=== PATIENT | male | born 1965 | race Caucasian/White ===

== ENCOUNTER 2024-10-27 05:21 | Observation (INO) ==
--- NOTE | 2024-09-23 15:52 | PAT Medication Instructions ---
Medication Instructions Date of Service September 23, 2024 Home Medications amlodipine 10 mg tablet 10 mg PO QAM cyanocobalamin (vitamin B-12) 1,000 mcg tablet (Vitamin B-12) 1,000 mcg PO DAILY diclofenac sodium 75 mg tablet,delayed release 75 mg PO QAM ergocalciferol (vitamin D2) 1,250 mcg (50,000 unit) capsule (Vitamin D2) 1,250 mcg PO WK gabapentin 300 mg capsule 300 mg PO HS PRN Pain losartan 100 mg tablet 100 mg PO QAM magnesium 250 mg tablet 250 mg PO DAILY multivitamin 1 tab PO QAM spironolactone 50 mg tablet 50 mg PO QAM ASK your surgeon for instructions diclofenac sodium 75 mg tablet,delayed release 75 mg PO QAM DO NOT take the morning of surgery cyanocobalamin (vitamin B-12) 1,000 mcg tablet (Vitamin B-12) 1,000 mcg PO DAILY ergocalciferol (vitamin D2) 1,250 mcg (50,000 unit) capsule (Vitamin D2) 1,250 mcg PO WK losartan 100 mg tablet 100 mg PO QAM magnesium 250 mg tablet 250 mg PO DAILY multivitamin 1 tab PO QAM spironolactone 50 mg tablet 50 mg PO QAM Take morning of surgery With a small sip of water, OTHERWISE NOTHING TO EAT OR DRINK AFTER MIDNIGHT: amlodipine 10 mg tablet 10 mg PO QAM Take evening before surgery gabapentin 300 mg capsule 300 mg PO HS PRN Pain (if needed) Other Notes If you have any questions please call us at [phone] or [phone] or [phone] or [phone]
--- NOTE | 2024-10-02 14:50 | Anesthesiology Consultation ---
Date of Service October 02, 2024 Assessment & Plan (1) Encounter for pre-operative examination: - check BSG am DOS. - awaitin10/06/24 [facility] cardiology clearance. Optimization form regarding rare chest discomfort to be faxed to cardiology. 10/16/24 PCP clearance, Sarah Branch. - daily alcohol intake: 6-12 beers daily. - Outpatient joint assessment: Patient is currently scheduled for inpatient pathway. If re-evaluated and patient/surgeon requests outpatient pathway, patient is not a candidate for outpatient joint program. Chart Review Chart Review: Pending: Refer to Additional Notes / Consult section and Patient seen in Pre Admission Testing Teaching & Discussion Pre-Anesthesia Teaching/Discussion Notes: Instructed NPO after midnight before surgery, except medications with 15 cc of water. Medication instructions provided according to the PAT guidelines. History Surgery Operation Date: 10/27/24 07:00 Proposed Procedures p Right Total Knee Arthroplasty - Alessandro Cruz MD Height/Weight Height: 5 ft 10 in Weight: 139.5 kg Allergies Allergy/AdvReac Type Severity Reaction Status Date / Time pseudoephedrine AdvReac Unknown elevated bp Verified 09/23/24 09:51 [From [facility]] Medications Home Medications Medication Instructions Recorded Confirmed Last Taken amlodipine 10 mg tablet 10 mg PO QAM 09/23/24 09/23/24 Unknown cyanocobalamin (vitamin B-12) 1,000 mcg PO DAILY 09/23/24 09/23/24 Unknown 1,000 mcg tablet (Vitamin B-12) diclofenac sodium 75 mg 75 mg PO QAM 09/23/24 09/23/24 Unknown tablet,delayed release ergocalciferol (vitamin D2) 1,250 1,250 mcg PO WK 09/23/24 09/23/24 Unknown mcg (50,000 unit) capsule (Vitamin D2) gabapentin 300 mg capsule 300 mg PO HS PRN Pain 09/23/24 09/23/24 Unknown losartan 100 mg tablet 100 mg PO QAM 09/23/24 09/23/24 Unknown magnesium 250 mg tablet 250 mg PO DAILY 09/23/24 09/23/24 Unknown multivitamin 1 tab PO QAM 09/23/24 09/23/24 Unknown spironolactone 50 mg tablet 50 mg PO QAM 09/23/24 09/23/24 Unknown Past Medical History Medical History Pre-diabetes "borderline" Sleep apnea bipap w/ O2 @ 2lpm HTN (hypertension) controlled, stable per pt Patient denies h/o stroke, seizures, heart attack, heart failure, blood clots/DVTs or blood transfusions. Exercise / Class Metabolic Activity II 4-5 Yardwork/Stairs/Walk up hill (intermittent shortness of breath with one flight of stairs, rare chest discomfort ongoing for several months-improved with BP medications Rx by cardiology) Past Surgical History Surgical History Hx of tonsillectomy Hx of shoulder surgery right Past Anesthesia History No Hx of Anesthesia Complications and No Family Hx of Anesthesia Complications History of PONV No Hx of PONV and No Hx of Motion Sickness Social History Smoking Status: Never smoker Do You Dip or Chew Tobacco: Yes (advised) Hx Alcohol Use: Yes (6-12 beers daily) Alcohol type: beer alcohol intake frequency: 3 or more drinks per day Hx Substance Use: No substance use type: does not use Review of Systems Patient denies chest pain, shortness of breath, dyspnea on exertion, reflux, fever, chills, cough, wheezing, or palpitations. Physical Exam Vital Signs Vitals BP 131/76 P 83 TEMP 98.3 SP02 94% on RA RESP 18 Physical Patient resting comfortably in chair in no acute distress, alert and oriented, responding appropriately throughout visit Short, thick neck Full cervical extension range of motion without pain TMD < 3 finger breadths Mallampati Score 3 Dentition: intact, denies chipped or loose teeth, caps/crowns, implants or bridges Lungs: normal respiratory effort. Good air movement, clear throughout to auscultation, no adventitious breath sounds Cardiac: regular rate and rhythm, no murmurs noted Carotid arteries: negative bruit bilat Lab Results Anesthesia Preop Results Results Anesthesia Widget: WBC 6.91 K/ul (4.8-10.8) 10/02/24 Hgb 13.8 g/dl (14.0-18.0) L 10/02/24 Hct 40.1 % (42.0-52.0) L 10/02/24 Plt 179 K/uL (130-400) 10/02/24 Na 138 mmol/L (136-145) 10/02/24 K 4.3 mmol/L (3.5-5.1) 10/02/24 Cl 103 mmol/L (98-107) 10/02/24 CO2 28 mmol/L (21-32) 10/02/24 BUN 11 mg/dl (6-23) 10/02/24 Creat 0.81 mg/dl (0.6-1.4) 10/02/24 Glucose Level 96 mg/dl (70-99(Fasting)) 10/02/24 PT 10.6 Seconds (9.0-12.0) 10/02/24 PTT 25 Seconds (21-31) 10/02/24 INR 1.0 (0.9-1.1) 10/02/24 Urine Color Yellow 10/02/24 Urine Appearance Clear (Clear) 10/02/24 Urine pH 5.5 (4.5-7.5) 10/02/24 Urine Specific Mineral 1.005 (1.000-1.030) 10/02/24 Urine Protein Negative (Negative) 10/02/24 Urine Glucose (UA) Negative (Negative) 10/02/24 Urine Ketones Negative (Negative) 10/02/24 Urine Blood Negative (Negative) 10/02/24 Urine Nitrite Negative (Negative) 10/02/24 Urine Bilirubin Negative (Negative) 10/02/24 Urine Urobilinogen Negative (Negative) 10/02/24 Urine Leukocyte Esterase Negative (Negative) 10/02/24 Blood Type A Positive 10/02/24 Antibody Screen NEGATIVE 10/02/24 Testing Laboratory Results 08/27/24 A1c 6.1% Electrocardiogram Date: 10/02/24 NSR with sinus arrhythmia, rate 79 bpm Chest X-Ray Date: 10/02/24 1. No active cardiopulmonary disease. No other abnormalities noted. 2. Mild degenerative changes in the thoracic spine. Echocardiogram Date: 08/28/24 LVEF 55% Moderate cLVH Mild to moderately dilated RV Mildly reduced RV systolic function Moderately dilated LA Mild to moderately dilated RA Ascending aorta slightly increased in size at 4.1 cm, ABD 2.4 cm Normal LV wall motion Stress Test Date: 07/12/20 MPHR 85% Negative exercise stress test for ischemia per EKG criteria EF 58%
--- NOTE | 2024-10-05 07:34 | History & Physical Report ---
Date of Service October 05, 2024 Assessment & Plan (1) Osteoarthritis of right knee: Plan: PRE-OP Diagnosis: Right knee osteoarthritis Planned Procedure: Right total knee arthroplasty Plan: Patient is scheduled to undergo this procedure at the [facility] with October 27, [address] Cruz. Risks and complications of the procedure such as: Infection, bleeding, pain, scarring, nerve blood vessel damage, weakness, wound problems, stiffness, incomplete relief of symptoms, hardware failure, hardware loosening, wear, fracture, tendon or ligament injury, blood clots, embolism, cardiac, stroke and were explained to the patient at his visit visit with Dr. Cruz on August 07 and informed consent for the procedure was obtained. We will need to obtain preoperative medical clearance from the patient's primary care provider. He states than appointment is scheduled for October 16. Patient is scheduled to meet with anesthesia at the hospital later this afternoon. While there he will obtain a CBC with differential, complete metabolic panel, PT/INR, blood type and screen, urinalysis, urine culture and sensitivity, chest x-ray, leg length x-ray series, EKG his hemoglobin A1c and vitamin D levels are both up-to-date. During today's visit we reviewed the total knee packet. I provided the patient with paperwork to obtain obtaining a handicap placard for his vehicle. I provided him with information about lectures offered by [facility] in regards to joint replacement surgery. I provided him with an order to obtain a walker. I recommended that he purchase a shower chair and raised toilet seat. We discussed discharge planning from the hospital. Patient states he will most likely do in-home physical therapy for the first 2 weeks before transitioning to outpatient physical therapy. I advised the patient that he will be provided with a prescription for narcotic pain medication for postoperative pain control. We will have him on Eliquis twice daily for the first 30 days postoperatively for blood clot prevention. Patient be scheduled for 2-week postoperative follow- up visit with Dr. Cruz on November 13. This chart was completed utilizing walkby voice recognition software. Grammatical errors, random word insertions, pronoun errors, and in complete sentences are an occasional consequence of the system. Any questions or concerns about the content, text, or information contained within the body of this dictation should be addressed directly to the physician for clarification. History of Present Illness Chief Complaint: Chief Complaint: Right knee pain Primary Care Provider: NO PCP History of Present Illness (including history relevant to procedure): This 58-year-old male presents the clinic today for his preoperative history and physical. Patient complains of a 10-year history of persistent right knee pain localized to the medial aspect of the knee. Patient states that over the past few years he has noticed that his range of motion has been significantly limited. He has tried corticosteroid injections, hyaluronic acid injections, has used nonsteroidal agents and done physical therapy without any relief of his symptoms. Due to failed conservative management patient is electing to proceed with surgical intervention at this time. Review Of Systems: A 12 point review of systems is performed and is unremarkable except for those things stated in the HPI and past medical history. Past Medical History: Problems: Primary osteoarthritis of right knee Right foot pain Right knee pain Hypertension Hypercholesterolemia Heart murmur Sleep apnea with CPAP use Hand and foot numbness Hiatal hernia Obesity History of renal calculi Procedure History Procedure Procedure Date Comments Shoulder surgery Allergies and Sensitivities: Aparna Current Home Meds: (Last Updated 10/02 13:40) amLODIPine (amLODIPine 10 mg oral tablet) diclofenac (diclofenac sodium 75 mg oral delayed release tablet) ergocalciferol (Vitamin D2 1.25 mg (50,000 intl units) oral capsule) 50,000 Int_Unit PO q7days losartan (losartan 100 mg oral tablet) magnesium gluconate Daily multivitamin (Vitamin B Complex) spironolactone (spironolactone 50 mg oral tablet) TAKE 1 TABLET BY MOUTH EVERY DAY Initial Wt: 10/02 139.0 kg 306 lb Allergies Allergy/AdvReac Type Severity Reaction Status Date / Time pseudoephedrine AdvReac Unknown elevated bp Verified 09/23/24 09:51 [From Sudafed] Home Medications Medication Instructions Recorded Confirmed Type amlodipine 10 mg tablet 10 mg PO QAM 09/23/24 09/23/24 History cyanocobalamin (vitamin B-12) 1,000 mcg PO DAILY 09/23/24 09/23/24 History 1,000 mcg tablet (Vitamin B-12) diclofenac sodium 75 mg 75 mg PO QAM 09/23/24 09/23/24 History tablet,delayed release ergocalciferol (vitamin D2) 1,250 1,250 mcg PO WK 09/23/24 09/23/24 History mcg (50,000 unit) capsule (Vitamin D2) gabapentin 300 mg capsule 300 mg PO HS PRN Pain 09/23/24 09/23/24 History losartan 100 mg tablet 100 mg PO QAM 09/23/24 09/23/24 History magnesium 250 mg tablet 250 mg PO DAILY 09/23/24 09/23/24 History multivitamin 1 tab PO QAM 09/23/24 09/23/24 History spironolactone 50 mg tablet 50 mg PO QAM 09/23/24 09/23/24 History Past Med/Surg History Problem List (Updated 10/05/24 @ 07:33 by Mychal Lewis PA-C) Osteoarthritis of right knee Encounter for pre-operative examination Medical History Pre-diabetes "borderline" Sleep apnea bipap w/ O2 @ 2lpm HTN (hypertension) controlled, stable per pt Surgical History Hx of tonsillectomy Hx of shoulder surgery right Social History Smoking Status: Never smoker Tobacco Type: Smokeless Tobacco (Dip or Chew) Second Hand Exposure: Yes (hx); Do You Dip or Chew Tobacco: Yes (advised); Hx Alcohol Use: Yes (6-12 beers daily) Alcohol type: beer Hx Substance Use: No Preferred Language: Lebanese Communication Ability: Effective Heating Technician Required: No Beliefs That Will Affect Care: None Current Living Situation: Spouse Feels Safe at Home: Yes Assistive Devices: BiPap, Glasses and Oxygen - at Night Review of Systems All systems reviewed & are unremarkable except as noted in Subjective Physical Exam Physical Exam: Physical Exam: (relevant to the procedure, including heart and lung evaluation) General: Alert and oriented x 3 with proper grooming and hygiene EYES: Pupils are equal and reactive to light with accommodation. Extraocular movements are intact Throat: Posterior oropharynx clear with absence of edema, erythema or exudate Cardiac: Regular rate and rhythm with a grade 3/6 holosystolic MURMUR heard best over the right upper sternal border. No gallops appreciated Lungs: Clear to auscultation throughout with no wheezing, rales or rhonchi Abdomen: Obese, nondistended, nontender with normal active bowel sounds Extremities: Right knee; range of motion actively is from 10 degrees of extension to 100 degrees of flexion. Patient experiences medial joint line tenderness when the knee is palpated in the flexed position. There is audible crepitation with passive range of motion. I was unable to manipulate his patella due to arthritic change within the patellofemoral joint. He has visible varus malalignment. There is no laxity with varus or valgus stressing. AP drawer sign and Neville test are negative. Patient is neurovascularly intact in her right lower extremity and walks with an antalgic gait. Neuro: Cranial nerves II through XII are intact no motor or sensory deficit Skin: Normal in appearance with no open skin areas or discharge Results & Data Diagnostic Findings Studies (relevant to the procedure): x-rays from June 2023 show varus alignment, bone on bone medial compartment arthritis and patellofemoral ar thritis
--- OUTSIDE RECORDS SUMMARY | 2024-10-27 05:27 | External Medical Summary | Continuity of Care Document ---
Author Name Unknown Address [address] [place] [address] Phone Organization [facility] Address [address] [place] [address] Phone Support Name Relationship Address Phone Sarah Branch Primary Care Provider [address] [place] [address] Sarah Branch Attending Provider [address] [place] [address] Sarah Branch Referring Provider [address] [place] [address] Chief Complaint and Reason for Visit Chief Complaint Admit Date Aortic ectasia, unspecified site August 152024 12:18pm Allergies, Adverse Reactions, Alerts No known allergies Social History Smoking Status Unknown if ever smoked Observation Status Observation Response Date of Response Patient Sex Male August 29, 2024 12:04am Assigned Sex Male November 24 62 Family History Relationship Condition Age at Onset Recorded Date/T mina Parent Type 2 diabetes mellitus Unknown Heart disease Unknown Parent Heart disease Unknown Cerebrovascular accident (CVA) Unknown Problems Active Problems Medical Problem Onset Date Status Sleep apnea Unknown Active Essential hypertension Unknown Active Status post shoulder surgery Unknown Act litzy Relevant Diagnostic Tests and/or Laboratory Data Diagnostic Imaging Reports Report Dictated Date/Time Dictated By Status Echocardiogram August 28, 2024 12:44pm DO sharla Morgan [facility] [address] [facility], [address] ECHOCARDIOGRAM REPORT Signed Patient: Matt Boucher : 1965 Male DOS: 08/28/24 1244 Primary Care Physician: HENRIK Branch Ordering Physician: Sarah Branch PA-C Referring Physician: Sarah Branch PA-C Location: [facility] Cardiology [facility] [address] [place] [address] Echocardiogram Report Name: Matt Boucher Ordering Physician: Sarina^Sarah Patient Location: [facility] Gender: Male : 1965 Race: CA Age: 58 yrs HR: 63 Study Date: 08/28/2024 12:44 PM Height: 70 in Weight: 302 lb BSA: 2.5 m2 BP: 132/70 mmHg Reason For Study: Aortic ectasia, unspecified site Interpretation Summary The ascending aorta maybe slightly increased in size.. Images technically limited. There is moderate concentric left ventricular hypertrophy. The left ventricular ejection fraction is normal. The left ventricular wall motion is normal. The right ventricle is mild to moderately dilated. The left atrium is moderately dilated. There is trace mitral regurgitation. Mildly dilated ascending aorta. ASC 4.1 cm, ABD 2.4cm The diastolic parameters measured indicate a pseudo normal (grade II) diastolic filling pattern. Procedure: A complete two-dimensional transthoracic echocardiogram was performed (2D, M- mode, Doppler and color flow Doppler). Findings: Left Ventricle: The left ventricle is grossly normal size. There is moderate concentric left ventricular hypertrophy. Endocardial definition is poor, no gross wall motion abnormalities. The left ventricular ejection fraction is normal. Ejection Fraction = greater than 55%. The left ventricular wall motion is normal. Right Ventricle: The right ventricle is mild to moderately dilated. The right ventricular systolic function is mildly reduced. Atria: The left atrium is moderately dilated. The right atrium is mild to moderately dilated. There is no Doppler evidence for an atrial septal defect. Mitral Valve: The mitral valve is not well visualized. The MV is sclerotic. There is no mitral valve stenosis. There is trace mitral regurgitation. Tricuspid Valve: The tricuspid valve is not well visualized. Tricuspid leaflets are thickened. There is no tricuspid stenosis. There is trace tricuspid regurgitation. Right ventricular systolic pressure is normal. Aortic Valve: The aortic valve is not well visualized. The aortic valve is sclerotic. No hemodynamically significant valvular aortic stenosis. The aortic valve mean pressure gradient = 6 mmHg. Trace aortic regurgitation. Pulmonic Valve: The pulmonic valve is not well visualized. There is no pulmonic valvular stenosis. Trace pulmonic valvular regurgitation. Great Vessels: The aortic root is normal size. Mildly dilated ascending aorta. ASC 4.1 cm, ABD 2.4cm. Pericardium/Pleural: There is no pericardial effusion. Diastolic Function: The diastolic parameters measured indicate a pseudo normal (grade II) diastolic filling pattern. MMode/2D Measurements & Calculations RVDd: 4.2 cm FS: 41.7 % IVSd: 1.3 cm EDV(Teich): 134.7 ml LVIDd: 5.3 cm ESV(Teich): 37.5 ml LVIDs: 3.1 cm LVPWd: 1.3 cm LA dimension: 4.6 cm LV mass(C)dI: 115.3 grams/m2 asc Aorta Diam: 3.5 cm LVOT diam: 2.2 cm LVOT area: 3.8 cm2 LA A2Cs: 65.5 ml LA A4Cs: 63.3 ml TAPSE: 1.8 cm Doppler Measurements & Calculations MV E max sachin: 98.4 cm/sec MV dec slope: 243.6 cm/sec2 MV A max sachin: 95.4 cm/sec MV E/A: 1.0 MV dec time: 0.40 sec Lat Peak E' Sachin: 9.9 cm/sec Lateral E to E': 10.0 {ratio} Med Peak E' Sachin: 11.4 cm/sec Medial E to E': 8.6 {ratio} LV V1 VTI: 26.4 cm SV(LVOT): 100.1 ml LV V1 max: 125.9 cm/sec Ao V2 max: 161.6 cm/sec Ao max P.5 mmHg Ao V2 mean: 115.7 cm/sec Ao mean P.0 mmHg Ao V2 VTI: 33.0 cm EDILBERTO(I,D): 3.0 cm2 EDILBERTO(V,D): 3.0 cm2 PA V2 max: 138.8 cm/sec PA pr(Accel): 26.3 mmHg PA max P.7 mmHg PA acc time: 0.12 sec RV S Sachin: 21.6 cm/sec Interpreted and electronically authenticated by Martin Nixon, 08/28/2024 04:04 DO PM Ordering Physician: Alpa Referring Physician: Sarah Branch Performed By: Sarah Vaca RDCS Dictated By:Martin Nixon DO Electronically Signed By: Martin Nixon DO Signed Date/Time:08/28/24 160 Twisting Frame Operator: RONAL Dictated Date: 08/28/24 1244 Transcribed Date/Time:08/28/24 160 CC: Sarah Branch PA-C ; Advance Directives Advance Directive Response Recorded Date/ Time Do you have Advance Directives? Yes February 10, 2016 10:07am Insurance Providers Guarantor Matt Boucher Address [id number] [place] [id number] Contact Info. Home Phone: Payer Policy Id Coverage Id Subscriber's Name Subscriber Id Effective Date Expiration Date [place] [id number] [id number] Matt Boucher [id number] Self Pay Self N/A Encounters Encounter Location(s) Arrival/Admit Date Discharge/Depart Date Provider(s) Departed Referred [facility] August 28, 2024 12:18pm August 28, 2024 12:19pm HENRIK Branch
--- OUTSIDE RECORDS SUMMARY | 2024-10-27 05:27 | External Medical Summary | Continuity of Care Document ---
Author Name Unknown Organization [facility] [address] [facility] Address [address] [place], [place] [id number] Care Team Providers Care Molding Fitter Name Role Phone Sarah Branch Thais Primary Care Physician [phone] [id number] Date(s): 09/04/24 - 09/04/24 [facility] [address], [address] [place] [address] [phone] Discharge Disposition: Home or Self Care Attending Physician: MD Cruz Paul S Referring Physician: MD Cruz Paul S Encounter Type: Clinic Allergies, Adverse Reactions, Alerts No Known Allergies Problem List Condition Confirmation Course Effective Dates Status H ealth Status Informant Right foot pain Confirmed Active Right knee pain Confirmed Active Primary osteoarthritis of right knee Confirmed Active Results Radiology Reports * Exam Date Time Procedure Performing Provider Status 09/04/24 7:59 AM VL Lower Ext Arterial Duplex Right Cinthya Ricardo; Final Notes: (VL Lower Ext Arterial Duplex Right) Reason For Exam: diminished pulse VL Lower Ext Arterial Duplex Right [facility] FINAL REPORT Name: KALIN DRIVER : 1965 Visit: [id number] Date: 04 Sep 2024 TYPE OF TEST: Extremity Arterial Duplex REASON FOR TEST Decreased pulse INTERPRETATION/FINDINGS Arterial duplex imaging performed of the RIGHT lower extremity: 1. Patent distal external iliac, common femoral, proximal profunda femoris, superficial femoral, popliteal, tibioperoneal trunk, anterior tibial, posterior tibial and peroneal arteries without evidence of stenosis. 2. The right ankle/brachial index is 1.15 (normal). 3. The left ankle/brachial index is 1.25 (normal). No previous studies available for comparison. IMPRESSION/COMMENTS I have personally reviewed the data relevant to the interpretation of this study. TECHNOLOGIST: Cinthya Jacob RDCS, RVT PHYSICIAN: Padilla Hernandez MD Signed: 09/04/2024 05:04 PM Final Dictated by:MD Hernandez John F Dictated DT/TM:09/04/2024 5:04 Signed by:MD Hernandez John F Signed (Electronic Signature):09/04/2024 5:04 p Transcribed by:JFR Social History Social History Type Response Smoking Status Never smoked cigaret leslie Sex Male Sex Representation Male (finding) Patient Care team information Care Team Personnel Name: HENRIK Branch, Sarah Plascencia Position: Referring Member Role: Primary Care Provider Address: [facility] Primary [address] [place] [address] Telecom: [phone] Insurance Providers Guarantor name: KALIN VASQUESMWELL Health Plan Information #: 1 Payer: [facility] DoYouRemember [facility] Member Number: [id number] Policy Number: NA Group Number: [id number] Health Plan Information #: 2 Payer: [facility] Member Number: [id number] Policy Number: NA Group Number: NA
--- OUTSIDE RECORDS SUMMARY | 2024-10-27 05:27 | External Medical Summary | Continuity of Care Document ---
Author Name Unknown Organization [facility] [address] [facility] Address [address] [place], [place] [id number] Care Team Providers Care Mortgage Protection Specialist Name Role Phone SarinaSarah shaffer Thais Primary Care Physician [phone] [facility] [id number] Date(s): 10/06/24 - 10/06/24 [facility] [address], [address] [place] [address] [phone] Encounter Diagnosis Preop cardiovascular exam(Discharge Diagnosis) - 10/06/24 Thoracic aortic aneurysm (TAA)(Discharge Diagnosis) - 10/06/24 Aortic valve sclerosis(Discharge Diagnosis) - 10/06/24 Hypertension(Discharge Diagnosis) - 10/06/24 Hypercholesterolemia(Discharge Diagnosis) - 10/06/24 Borderline diabetes(Discharge Diagnosis) - 10/06/24 Discharge Disposition: Home or Self Care Attending Physician: DO Davies Michelle L Referring Physician: MD Anthony, Alessandro Lloyd Encounter Type: Clinic Allergies, Adverse Reactions, Alerts No Known Allergies Assessment and Plan Extracted from: Title:Cardiology Office Visit Note Author:DO Davies Michelle L Date:10/06/24 1. Preop cardiovascular exa m 2. Thoracic aortic aneurysm (TAA) 3. Aortic valve sclerosis Rule out bicuspid aortic valve 4. Hypertension 5. Hypercholesterolemia 6. Borderline diabetes As stated above I think from a cardiovascular standpoint he is considered to be an appropriate candidate for the upcoming knee surgery. His cardiovascular risk is low to intermediate. I am recommending that he stay on all of his current blood pressure medications including amlodipine and losartan as well as the Aldactone. He should also be maintained on aspirin 81 mg daily given his multiple cardiovascular risk factors. I also agree with using NOAC for DVT prevention postoperatively for him. I discussed with him nicotine as well as alcohol cessation prior to his surgery. I will follow-up with him over the summer with a repeat limited echo to assess his aortic valve to see if this is in fact a bicuspid valve which would account for the thoracic aortic aneurysm. Depending on those results further recommendations would follow. He needs started on a statin. I given him prescription for rosuvastatin 10 mg to start after his knee surgery. Will have labs done prior to my visit over the summer. Regarding the atypical chest pain he noted in the past he tells me it has been over a year and a half since he has even noticed this. He has not had this most recently with the activities he does daily with his work. Given the prior normal nuclear stress test I would not work this up at this time. If in the future he develops any further symptoms I would consider doing a CTA of his coronaries however. Thank you for allowing me to participate in the care of this very nice patient. I look forward to participating in their care with you. I will follow up after remaining tests are complete. Jenae Davies DO [facility] Institutional Custodianclamshell engineer [facility] [place] [facility] , [place] Medications amLODIPine 10 mg oral tablet Start: 01/30/19 8:42:00 AM EDT, 1 tab, PO, Daily Start Date: 01/30/19 Status: Ordered Repeat number: 1 aspirin 81 mg oral delayed release tablet Start: 10/06/24 10:30:00 AM EDT, 1 tab, PO, Daily, Disp# 90 tab, Refills: 3, Pharm[facility]: [facility] Start Date: 10/06/24 Status: Ordered Quantity: 90.0 Unit: tab Repeat number: 4 diclofenac sodium 75 mg oral delayed release tablet Start: 01/30/19 8:42:00 AM EDT, 1 tab, PO, bid Start Date: 01/30/19 Status: Ordered Repeat number: 1 losartan 100 mg oral tablet Start: 01/30/19 8:42:00 AM EDT, 1 tab, PO, Daily Start Date: 01/30/19 Status: Ordered Repeat number: 1 magnesium Start: 10/06/24 9:05:00 AM EDT, magnesium Start Date: 10/06/24 Status: Ordered Repeat number: 1 rosuvastatin 10 mg oral tablet Start: 10/06/24 10:31:00 AM EDT, 1 tab, PO, qhs, Disp# 90 tab, Refills: 3, Pharmacy: [facility] Start Date: 10/06/24 Status: Ordered Quantity: 90.0 Unit: tab Repeat number: 4 spironolactone 50 mg oral tablet TAKE 1 TABLET BY MOUTH EVERY DAY Start Date: 10/27/21 Status: Ordered Repeat number: 1 Vitamin B Complex Start: 10/02/24 1:40:00 PM EDT Start Date: 10/02/24 Status: Ordered Repeat number: 1 Vitamin D2 1.25 mg (50,000 intl units) oral capsule Start: 08/27/24 4:42:00 PM EDT, 1 cap, PO, q7days, Disp# 4 cap, Pharmacy: [facility] Start Date: 08/27/24 Stop Date: 09/24/24 Status: Ordered Quantity: 4.0 Unit: cap Repeat number: 1 Indications: Unilateral primary osteoarthritis, right knee; Vitamin D deficiency, unspecified; Other specified symptoms and signs involving the circulatory and respiratory systems; Mental Status 10/06/24 Barriers to Learning one year None evide nt Mandatory Health Literacy Documentation Yes Health Literacy Communication Barriers N ever Primary Language German Problem List Condition Confirmation Course Effective Dates Status H ealth Status Informant Right foot pain Confirmed Active Hyperlipidemia Confirmed Active HTN (hypertension) Confirmed Active Right knee pain Confirmed Active YOSEPH on CPAP 1 Confirmed Active Primary osteoarthritis of right knee Confirmed Active Tobacco user Confirmed Active 1bipap Diagnosis Diagnosis Type Effective Dates Health Status Clinical Service Informant Preop cardiovascular exam Discharge Diagnosis 10/06/24 Non-Specifie d Borderline diabetes Discharge Diagnosis 10/06/24 Non-Specifie d Aortic valve sclerosis Discharge Diagnosis 10/06/24 Non-Specifie d Hypertension Discharge Diagnosis 10/06/24 Non-Specifie d Thoracic aortic aneurysm (TAA) Discharge Diagnosis 10/06/24 Non-Specifie d Hypercholesterolemia Discharge Diagnosis 10/06/24 Non-Specifie d Vital Signs Most recent to oldest [Reference Range]: 1 Height 178 cm (10/06/24 9:18 AM) Patient Weight 138.7 kg (10/06/24 9:18 AM) Body Mass Index 43.78 kg/m2 (10/06/24 9:18 AM) Heart Rate 81 bpm (10/06/24 9:18 AM) Blood Pressure 138/78mmHg (10/06/24 9:18 AM) Cuff Pulse Pressure 60 mmHg (10/06/24 9:18 AM) Social History Social History Type Response Smoking Status Never smoked cigaret leslie Sex Male Sex Representation Male (finding) Cardiology Outpatient Note * DO Davies Michelle L: PERFORM Event Display: Cardiology Outpt Note Authored Date: [id number] Primary Care Provider HENRIK Branch, Sarah Plascencia Referring Provider MD Anthony, Alessandro Lloyd Reason for Consultation Clearance Chief Complaint pt for pre op clearance. had echo. EKg done at [facility]. Had stress test ? 3 years ago.- was told it was fine. History of Present Illness Kalin Boucher is a 58-year-old who is here for preop cardiovascular clearance prior to right total knee replacement with Dr. Cruz on October 27, 2024. 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 He reports constantly being up and down on ladders and stairs with his work. He is able to walk 2-3 flights of stairs and can walk 2-3 blocks without having to stop. His baseline EKG which was done recently at [facility] shows normal sinus rhythm and is otherwisenormal. He underwent a nuclear stress test back in 2020 which was normal. He was able to exercise into stage IV and there were no perfusion defects. From a cardiac standpoint he is considered to be an appropriate candidate for the upcoming surgery. His recent echo documented normal LV systolic function without wall motion abnormalities. His cardiovascular risk is considered to be low. 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 He tells me that it has been more than a year and a half since he had this last episode and it was while he was cutting wood and lifting heavy logs in the summer. He has not had this for quite some time. He does not get this with his normal work related exercise or activity. That being said he has multiple cardiovascular risk factors including a mild thoracic aortic aneurysm noted on his echo at 4.1. According to the report done at [facility] his aortic valve was not well- visualized and the size of the thoracic aorta may have slightly increased compared to his last echo. 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 In addition he has hypertension is probably diabetic with an A1c of 6.1 has hypercholesterolemia and is not on a statin as well as he chews nicotine daily. He has a strong family history of vascular disease in his mother who in her mid 50s of diabetic complications she had prior heart attacks as well as bilateral keebg-gnv-besy amputations. His father in his 70s with a history of stroke as well as heart disease. He has a younger brother who is all already had multiple cardiac stents. In addition he consumes about 6 cans of beer daily. We discussed modification of his cardiac risk factors including starting him on a statin, as well as a baby aspirin and nicotine cessation. We also reviewed cutting back on his alcohol use. Also discussed with him discussions with his family doctor regarding treatment with one of the newer diabetic medications such as Ozempic which may aid in weight loss as well as blood sugar control. Review of Systems General: no fevers, chills, weight loss of gain HEENT: no changes in vision or hearing; no recent falls or head trauma Cardiac: No other symptoms other than reported in HPI Pulmonary: No symptoms other than reported in HPI Abdomen: No changes in bowel habits, nausea, vomiting, no BRBPR : no changes in urine frequency Extremities: no edema or claudication; neuropathy bilaterally from the knees down to the tops of his feet Physical Exam Vitals & Measurements HR: 81 (Monitored) BP: 138/78 SpO2: 98% HT: 178 cm WT: 138.700 kg (Dosing) WT: 138.7 kg BMI: 43.78 BMI: 43.78 kg/m2 Patient is awake alert and oriented x3 and in no acute distress HEENT: 2+ carotid upstrokes, no evidence of carotid bruits LUNGS: Clear to auscultation bilaterally no rales rhonchi or wheezing HEART: Regular rate and rhythm grade 1/6 systolic ejection murmur at the base ABDOMEN: Soft nontender nondistended positive bowel sounds EXTREMITIES: No evidence of clubbing cyanosis or edema PSYCHIATRIC: Patient’s affect appeared appropriate Diagnostic Results Total cholesterol 241 LDL 161 HDL 43 triglycerides 201 EKG Normal sinus rhythm Assessment/Plan 1. Preop cardiovascular exam 2. Thoracic aortic aneurysm (TAA) 3. Aortic valve sclerosis Rule out bicuspid aortic valve 4. Hypertension 5. Hypercholesterolemia 6. Borderline diabetes As stated above I think from a cardiovascular standpoint he is considered to be an appropriate candidate for the upcoming knee surgery. His cardiovascular risk is low to intermediate. I am recommending that he stay on all of his current blood pressure medications including amlodipine and losartan as well as the Aldactone. He should also be maintained on aspirin 81 mg daily given his multiple cardiovascular risk factors. I also agree with using NOAC for DVT prevention postoperatively for him. I discussed with him nicotine as well as alcohol cessation prior to his surgery. I will follow-up with him over the summer with a repeat limited echo to assess his aortic valve tosee if this is in fact a bicuspid valve which would account for the thoracic aortic aneurysm. Depending on those results further recommendations would follow. He needs started on a statin. I given him prescription for rosuvastatin 10 mg to start after hisknee surgery. Will have labs done prior to my visit over the summer. Regarding the atypical chest pain he noted in the past he tells me it has been over a year and a half since he has even noticed this. He has not had this most recently with the activities he does daily with his work. Given the prior normal nuclear stress test I would not work this up at this time. If in the future he develops any further symptoms I would consider doing a CTA of his coronaries however. Thank you for allowing me to participate in the care of this very nice patient. I look forward toparticipating in their care with you. I will follow up after remaining tests are complete. Jenae Davies DO [facility] Institutional Custodianclamshell engineer [facility] [place] [facility] , [place] Attestation I, Jenae Davies DO [facility] have spent 55 minutes performing the activities necessary in the patients visit. This time does not include separately reported service. Activities include the following: _x_ review of the medical record _x_ obtaining a history _x_ physical exam/evaluation _x_counseling/educating patient/family/caregiver _x_ discussion/referral to other healthcare professionals _x_ documenting care in the medical record _x_ independent interpretation of results _x_ communication of results to patient/family/caregiver _x_ coordination of care Problem List/Past Medical History Ongoing HTN (hypertension) Hyperlipidemia YOSEPH on CPAP Primary osteoarthritis of right knee Right foot pain Right knee pain Tobacco user Cardiac History Prediabetes Hypercholesterolemia Hypertension Thoracic aortic aneurysm 4.1 cm on echo Aortic murmur question bicuspid valve Nicotine use Medications amLODIPine(amLODIPine 10 mg oral tablet), 10 mg= 1 tab, PO, Daily aspirin(aspirin 81 mg oral delayed release tablet), 81 mg= 1 tab, PO, Daily, 3 refills diclofenac(diclofenac sodium 75 mg oral delayed release tablet), 75 mg= 1 tab, PO, bid ergocalciferol(Vitamin D2 1.25 mg (50,000 intl units) oral capsule), 17181 Int_Unit= 1 cap, PO, q7days losartan(losartan 100 mg oral tablet), 100 mg= 1 tab, PO, Daily multivitamin(Vitamin B Complex) rosuvastatin(rosuvastatin 10 mg oral tablet), 10 mg= 1 tab, PO, qhs, 3 refills spironolactone(spironolactone 50 mg oral tablet) unknown medication(magnesium) Allergies NKA Social History Smoking Status Never smoked cigarettes Family History Heart attack: Mother and Father. Heart disease: Brother. Health Status Family Member(s) Family Member(s) Relationship: Mother, Age: Unknown Electronic Signature on File Electronically Reviewed/Signed by: Jenae Davies DO Author Signature Dt/Tm:10/06/2024 10:39 AM Division of General Cardiology MLS Patient Care team information Care Team Personnel Name: HENRIK Branch, Sarah Plascencia Position: Referring Member Role: Primary Care Provider Address: [address] [place] [address] Telecom: [phone] Insurance Providers Guarantor name: KALIN BOUCHER [employer] [facility] Information #: 1 Payer: iodine Member Number: [id number] Policy Number: NA Group Number: [id number] Payer Identifier: [id number] Health Plan Information #: 2 Payer: iodine Member Number: [id number] Policy Number: NA Group Number: NA Payer Identifier: [id number]
--- OUTSIDE RECORDS SUMMARY | 2024-10-27 05:27 | External Medical Summary | Continuity of Care Document ---
Author Name Unknown Address [address] [place] [address] Phone Organization [facility] Address [address] [place] [address] Phone Support Name Relationship Address Phone Sarah Branch Primary Care Provider [address] [place] [address] Sarah Branch Attending Provider [address] [place] [address] Sarah Branch Referring Provider [address] [place] [address] Chief Complaint and Reason for Visit Chief [...] August 28, 2024 12:44pm DO sharla Morgan [facility] [address] [facility], [address] ECHOCARDIOGRAM REPORT Signed Patient: Matt Boucher : 1965 Male DOS: 08/28/24 1244 Primary Care Physician: HENRIK Branch Ordering Physician: Sarah Branch PA-C Referring Physician: Sarah Branch PA-C Location: [facility] Cardiology [facility] [address] [place] [address] Echocardiogram Report Name: Matt Boucher Ordering Physician: Sarina^Sarah Patient Location: [facility] Gender: Male : 1965 Race: [place] [...] By: Martin Nixon DO Signed Date/Time:08/28/24 160 [employer] Teacher: RONAL Dictated Date: 08/28/24 1244 Transcribed Date/Time:08/28/24 160 CC: Sarah Branch PA-C ; Advance Directives Advance Directive Response Recorded Date/ Time Do you have Advance Directives? Yes February 10, 2016 10:07am Insurance Providers Guarantor Matt Boucher Address [address] [place] [address] Contact Info. Home Phone: Payer Policy Id Coverage Id Subscriber's Name Subscriber Id Effective Date Expiration Date [place] [address] [id number] Matt Boucher [id number] Self Pay Self N/A Encounters Encounter Location(s) Arrival/Admit Date Discharge/Depart Date Provider(s) Departed Referred [facility] August 28, 2024 12:18pm August 28, 2024 12:19pm HENRIK Branch
--- OUTSIDE RECORDS SUMMARY | 2024-10-27 05:27 | External Medical Summary | Continuity of Care Document ---
Author Name Unknown Organization [facility] [address] [place], [place] [address] Address [address] [place] [phone] Encounter [facility] [id number] Date(s): 08/07/24 - 08/07/24 [facility] [address] [facility] [address] [facility] Sports Medicine [address] [place] [address] Encounter Diagnosis Primary osteoarthritis of right knee(Discharge Diagnosis) - 08/07/24 Diminished pulses in lower extremity(Discharge Diagnosis) - 08/07/24 Discharge Disposition: Home or Self Care Attending Physician: MD Anthony, Alessandro Lloyd Encounter Type: Clinic Allergies, Adverse Reactions, Alerts No Known Allergies Medications amLODIPine 10 mg oral tablet Start: 01/30/19 8:42:00 AM EDT Start Date: 01/30/19 Status: Ordered Repeat number: 1 diclofenac sodium 75 mg oral delayed release tablet Start: 01/30/19 8:42:00 AM EDT Start Date: 01/30/19 Status: Ordered Repeat number: 1 Euflexxa 10 mg/mL intra-articular solution Start: 02/24/24 8:22:00 AM EDT, 20 mg =, intra-articular, q7days, Disp# 6 mL, Refills: 0, R KNEE DJD M17.11, Note to Pharmacy: 3 syringes for R knee. Please ship to physician's office: [address] [place] [address]. [address] [address], Pharmacy: [facility] Start Date: 02/24/24 Stop Date: 03/16/24 Status: Ordered Quantity: 6.0 Unit: mL Repeat number: 1 Indication: Unilateral primary osteoarthritis, right knee losartan 100 mg oral tablet Start: 01/30/19 8:42:00 AM EDT Start Date: 01/30/19 Status: Ordered Repeat number: 1 spironolactone 50 mg oral tablet TAKE 1 TABLET BY MOUTH EVERY DAY Start Date: 10/27/21 Status: Ordered Repeat number: 1 Mental Status 08/07/24 Barriers to Learning one year None evide nt Mandatory Health Literacy Documentation Yes Health Literacy Communication Barriers N ever Primary Language Japanese Problem List Condition Confirmation Course Effective Dates Status H ealth Status Informant Right foot pain Confirmed Active Right knee pain Confirmed Active Primary osteoarthritis of right knee Confirmed Active Diagnosis Diagnosis Type Effective Dates Health Status Clinical Service Informant Diminished pulses in lower extremity Discharge Diagnosis 08/07/24 Non-Specified Primary osteoarthritis of right knee Discharge Diagnosis 08/07/24 Non-Specified Social History Social History Type Response Smoking Status Never smoked cigaret leslie Sex Male Sex Representation Male (finding) Ortho Outpt Note * Tita Lujan: PERFORM, MODIFY MD Anthony, Alessandro Lloyd: MODIFY Event Display: Ortho Outpt Note Authored Date: [id number] Name: KALIN BOUCHER Patient Number: [id number] : 1965 Date of Service: 08/07/2024 CHIEF COMPLAINT: Right knee s/p Euflexxa injection HPI: Kalin Boucher is a 58 year old Male who presents today for continued evaluation of his right knee. He continues to have pain worse with activity. He will have pain occasionally at rest buthis pain does not disturb his sleep. He does not appreciate any significant swelling. He has tried cortisone injections previously and completed a series of STAPLES injections on 04/10/2024. He rates his p ain a 6/10 and increases with activities. He is considering knee replacement surgery at this time. ROS: No history of blood clot, bleeding problem, or embolism. No history of MRSA or Staph. No allergies to metal or nickel. He is borderline diabetic but not on medication. No kidney, bladder, or prostate issues. Prior surgery without issues. PHYSICAL EXAM: Focusing on the patient's right lower extremity: Gait Normal Varus Alignment Nonpalpable DP and 1+ PT pulses Capillary refill less than 2 seconds Sensation intact to light touch Motor strength 5/5: Knee flexion and extension/ Ankle plantarflexion and dorsiflexion/ ankle inversion and eversion/ Big toe extension Knee (right) ROM: 0°/ 5°/ 115° Hip ROM: Painless Active straight leg raise intact Absent Effusion Ligament exam: Negative Posterior drawer Negative Neville, intact endpoint No varus valgus laxity at 0 º 1+ MCL and 1+ LCL laxity at 20 º knee flexion Positive Medial joint tenderness DIAGNOSTIC REVIEW: Review of x-rays from June 2023 show varus alignment, bone on bone medial compartment arthritis and patellofemoral arthritis. IMPRESSION: 1) Right knee arthritis 2) Diminished pulses right lower extremity PLAN: Discussed risks, benefits, procedure, and recovery for total knee replacement. Surgical consent obtained for right TKA. 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 Follow-up as needed for H&P. Will nee updated 4 view knee series at preop plus a bilateral long-leg alignment film. Due to body habitus will need a revision tibia implant. Vanco in the cement. ATTESTATION: ITita, scribing for and in the presence of, Alessandro Cruz, on this date, 509:45:11. Electronic Signature on File Electronically Reviewed/Signed by: Tita Lujan Author Signature Dt/Tm:08/07/2024 10:33 AM Electronically Reviewed/Signed by: Alessandro Cruz MD Cosigner Signature Dt/Tm: 08/07/2024 11:01 AM Division of Sports Medicine [place] Insurance Providers Guarantor name: KALIN BOUCHER Health Plan Information #: 1 Payer: [facility] [employer] [facility] Member Number: [id number] Policy Number: NA Group Number: [id number] Health Plan Information #: 2 Payer: [facility] [employer] [facility] Member Number: [id number] Policy Number: NA Group Number: NA
--- OUTSIDE RECORDS SUMMARY | 2024-10-27 05:27 | External Medical Summary | Continuity of Care Document ---
Author Name Unknown Organization [id number] Address [address] [place] [id number] Care Team Providers Care Mechanical Maintenance Technician Name Role Phone Sarah Branch Primary Care Physician [phone] Encounter [facility] [id number] Date(s): 10/02/24 - 10/02/24 [facility] [address] [place] [id number] [address] [place] [id number] Encounter Diagnosis Preop examination(Discharge Diagnosis) - 10/02/24 Primary osteoarthritis of right knee(Discharge Diagnosis) - 10/02/24 Discharge Disposition: Home or Self Care Attending Physician: HENRIK Lewis Dennis Referring Physician: MD Anthony, Alessandro Lloyd Encounter [...] 01/30/19 Status: Ordered Repeat number: 1 magnesium gluconate Start: 10/02/24 1:39:00 PM EDT, Daily Start Date: 10/02/24 Status: Ordered Repeat number: 1 spironolactone 50 mg oral tablet TAKE 1 TABLET BY MOUTH EVERY DAY Start Date: 10/27/21 Status: Ordered Repeat number: 1 Vitamin B Complex Start: 10/02/24 1:40:00 PM EDT Start Date: 10/02/24 Status: Ordered Repeat number: 1 Vitamin D2 1.25 mg (50,000 intl units) oral capsule Start: 08/27/24 4:42:00 PM EDT, 1 cap, PO, q7days, Disp# 4 cap, Pharmacy: [facility] Start Date: 08/27/24 Stop Date: 09/24/24 Status: Ordered Quantity: 4.0 Unit: cap Repeat number: 1 Indications: Unilateral primary osteoarthritis, right knee; Vitamin D deficiency, unspecified; Other specified symptoms and signs involving the circulatory and respiratory systems; Mental Status 10/02/24 Barriers to Learning one year None evide nt Mandatory Health Literacy Documentation Yes Health Literacy Communication Barriers N ever Primary Language Tajik Problem List Condition Confirmation Course Effective Dates Status H ealth Status Informant Right foot pain Confirmed Active Right knee pain Confirmed Active Primary osteoarthritis of right knee Confirmed Active Diagnosis Diagnosis Type Effective Dates Health Status Clinical Service Informant Primary osteoarthritis of right knee Discharge Diagnosis 10/02/24 Preop examination Discharge Diagnosis 10/02/24 Vital Signs Most recent to oldest [Reference Range]: 1 Height 177 cm (10/02/24 1:40 PM) Patient Weight 139 kg (10/02/24 1:40 PM) Body Mass Index 44.37 kg/m2 (10/02/24 1:40 PM) Temperature [36.5-37.9 DegC] 36.6 DegC (10/02/24 1:40 PM) Heart Rate 88 bpm (10/02/24 1:40 PM) Blood Pressure 142/70mmHg (10/02/24 1:40 PM) Cuff Pulse Pressure 72 mmHg (10/02/24 1:40 PM) Social History Social History Type Response Smoking Status Never smoked cigaret leslie Sex Male Sex Representation Male (finding) Patient Care team information Care Team Personnel Name: HENRIK Branch Danielle Lynn Position: Referring Member Role: Primary Care Provider Address: [address] [place] [address] Telecom: [phone] Insurance Providers Guarantor name: KALIN DRIVER Health Plan Information #: 1 Payer: [employer] Member Number: [id number] Policy Number: NA Group Number: [id number] Payer Identifier: [id number] Health Plan Information #: 2 Payer: [employer] Member Number: [id number] Policy Number: NA Group Number: [id number] Payer Identifier: [id number]
[2024-10-27] MEDS: LR 500ML BOLUS, THEN 15ML/HR IV SCH (06:01)
[2024-10-27] MEDS: LR 60ML/HR IV SCH (06:02)
[2024-10-27] MEDS ORDERED: MIDAZOLAM HCL 1 MG/ML 2ML VIAL ONE ×2 (06:23→06:24)
[2024-10-27] MEDS ORDERED: fentaNYL citrate PF 100 MCG/2 ML VIAL ONE ×2 (06:23→09:20)
[2024-10-27] MEDS ORDERED: ROPIVACAINE 0.5% 5 MG/ML 30 ML VIAL ONE (06:25)
[2024-10-27] MEDS ORDERED: BUPIVACAINE 0.5 % 5 MG/1 ML PF 10ML VIAL ONE (06:25)
[2024-10-27] MEDS: CeleBREX 200 MG CAP PO SCH (06:31)
[2024-10-27] MEDS: traMADol HCL 50 MG TABLET PO SCH (06:31)
[2024-10-27] MEDS: GABAPENTIN 600 MG DOSE PO SCH (06:31)
[2024-10-27] MEDS: METOCLOPRAMIDE HCL 10 MG TABLET PO SCH (06:32)
[2024-10-27] MEDS: dexAMETHasone**PF** 10 MG/ML VIAL IV SCH (06:32)
[2024-10-27] MEDS: FAMOTIDINE 20 MG TAB PO SCH (06:32)
[2024-10-27] MEDS: oxyCODONE HCL 10 MG TABCR (OxyCONTIN) PO SCH (06:32)
[2024-10-27] MEDS: ACETAMINOPHEN 500 MG TAB PO SCH ×2 (06:32→14:05)
[2024-10-27] MEDS ORDERED: ONDANSETRON INJ 2 MG/ML 2 ML VIAL IV PRN ×2 (06:37→13:06)
[2024-10-27] MEDS ORDERED: PROPOFOL IV EMULSION 10 MG/ML 20 ML VIAL IV ONE ×7 (06:37→09:50)
[2024-10-27] MEDS ORDERED: fentaNYL citrate PF 100 MCG/2 ML VIAL IV PRN (06:37)
[2024-10-27] MEDS ORDERED: ATROPINE SULFATE 0.1 MG/ML 10ML SYR IV PRN (06:37)
[2024-10-27] MEDS ORDERED: ePHEDrine sulfate 50 MG/ML AMP IV PRN (06:37)
[2024-10-27] MEDS ORDERED: LIDOCAINE 2% 2 ML VIAL/AMP(20MG/ML) INFIL ONE (06:37)
[2024-10-27] MEDS: TRANEXAMIC ACID 1,000 MG **IV Pre-op IV SCH (06:43)
--- NOTE | 2024-10-27 06:44 | History & Physical Bridge Note ---
Date of Service October 27, 2024 History & Physical Bridge Note I have examined the patient, reviewed the History & Physical and in the interval since the performance of the History & Physical I have noted the following changes of clinical significance: no changes noted
[2024-10-27] MEDS: ceFAZolin 3000MG 3,000 MG/72.5 ML BAG IV SCH ×2 (07:00→15:28)
[2024-10-27] MEDS ORDERED: KETAMINE HCL 10MG/ML SYR ONE (07:08)
[2024-10-27] MEDS ORDERED: GLYCOPYRROLATE 0.2 MG/ML VIAL ONE (07:08)
[2024-10-27] MEDS ORDERED: PHENYLEPHRINE 100MCG/ML 5ML SYR ONE (07:10)
[2024-10-27] MEDS ORDERED: PHENYLEPHRINE HCL 10 MG/ML VIAL ONE (07:19)
[2024-10-27] MEDS ORDERED: ONDANSETRON INJ 2 MG/ML 2 ML VIAL ONE (07:41)
[2024-10-27] MEDS: VANCOMYCIN HCL 1000MG/20ML VIAL ONE (08:40)
[2024-10-27] MEDS: ORTHO JOINT ANESTHETIC ONE (08:40)
[2024-10-27] MEDS ORDERED: DEXAMETHASONE SOD INJ 4 MG/ML VIAL ONE (10:07)
[2024-10-27] MEDS: ROPIVACAINE 0.5% HCL/PF 246 MG, Ketorolac (*for OR use only*) 30 MG, EPINEPHrine 30MG/3... INFIL SCH (10:22)
--- NOTE | 2024-10-27 11:17 | Operative Report ---
Post Operative Report Pre & Post Diagnosis Operation Date: 10/27/24 07:00 Pre-Op Diagnosis: Right Knee Osteoarthritis Post-Op Diagnosis: Right Knee Osteoarthritis I identified the patient and participated in the time-out.: Yes Procedure Operation Date: 10/27/24 07:00 Actual Procedures p Right Total Knee Arthroplasty, Cemented(Right) - Alessandro Cruz MD Surgeon Alessandro Cruz MD Diagnostic Assistant Butch HAYDEN, no resident or fellow available Estimated Blood Loss 5 Findings Consistent with Post-Op Diagnosis Specimens Resected bone and soft tissue of the right knee Anesthesia Type MAC Spinal Regional Disposition Accompanied Patient To Recovery: No Disposition: Recovery Room Indications Matt is 58 years old and has severe osteoarthritis right knee medial compartment refractory to nonsurgical treatment. He wishes to have his knee replaced. Description of Procedure Informed consent. Patient identified. He identified the procedure site as the right knee. I marked with my initials. A preoperative surgical timeout was performed. A preop dose of IV antibiotics was given. He was taken to the operating room positioned supine on the OR table. A bump was placed under the r ight hip. Tourniquet on the right thigh. A padded post under the right calf. The leg was prepped and draped in the usual sterile fashion. DVT prophylaxis intraoperatively with mechanical devices. Postop early mobility mechanical devices and Eliquis beginning the morning after surgery. The examination under anesthesia revealed range of motion 0/10/110 with a fixed significant varus deformity. There was no significant MCL laxity and 1+ LCL laxity at 20 degrees knee flexion the knee was otherwise stable. Limb exsanguinated with the Esmarch. Tourniquet inflated to 275 mmHg. A midline longitudinal incision was made of about 20 cm in length. There was significant prepatellar bursitis which was debrided. A medial parapatellar arthrotomy was performed. The patella had minimal marginal osteophytes which were debrided and at most grade 1 softening with a at least 4 mm thick cartilage throughout. I elected to not resurface the patella. The synovial layer in the lateral gutter was released. Soft tissue on the anterior aspect of the distal femur was resected. The retropatellar fat pad was resected. An extensile medial release was performed. The knee was flexed with the patella everted. Significant notch osteophytes with deficient ACL. Notch osteophytes were removed. Osteophytes around the margins of the knee which were significant medial greater than lateral compartment were debrided. Cruciate ligaments were resected. Osteophytes under the MCL were removed. The knee was able to be subluxated. The lateral compartment showed some grade 2 and 3 chondrosis size of a quarter on the weightbearing area of the lateral femoral condyle and some softening of the tibial plateau laterally. The lateral meniscus was intact. There was a large area of eburnation with bone wear and large osteophytes on the medial tibial. The medial meniscus was largely deficient. There were grade 4 changes throughout the weightbearing area of the medial femoral condyle. The menisci were excised. Cruciate ligaments were excised.A airplane pilot helper hole was drilled just in front of the lateral tibial spine followed by insertion of the intramedullary alignment atiya. This was aligned to the tibial tubercle and set the cut 10 off of the lateral side corresponding to a skim cut medially. This guide was pinned into place and the alignment in terms of both slope and varus valgus alignment was confirmed with the extramedullary alignment atiya. The patella tendon was protected and cut was made and sized to an 8. I then drilled a airplane pilot helper hole into the distal femur just above the PCL. The intr amedullary alignment atiya was inserted. 5 degree right knee valgus cut 11 mm thick cut. This was pinned in place and the cut was made. This was then a symmetric extension gap but I could get the 6 mm block in. I did some more medial releasing but could see that more was going to be necessary. The epicondylar axis was marked out. The distal femoral sizing block set at 3 degree right knee external rotation was applied and pinned in place. Sized to a 9. The pins were drilled and the 9 block was hung and fixated. Collateral ligaments were protected and the anterior and posterior and chamfer cuts were made. Osteophytes on the posterior aspect of the knee which were minimal medial more so than lateral were debrided. Osteophytes under the collateral ligaments were resected. The flexion gap was also an asymmetric 6. I reassessed to ensure that my tibial cut was appropriate in terms of varus valgus alignment which it was. With the smallest block in place the knee was fully straight in both the coronal and sagittal planes. I released more around the posterior medial aspect of the tibia resecting some osteophytes. This was not enough. I then had to essentially release almost the entire medial collateral ligament off of the tibia. This resulted in a symmetrical 8 mm flexion and extension gap. The box cutting guide was applied lateralized and the box cut was made. The tri al femur was applied and lug holes were drilled. The tibia was aligned to the lateral portion of the tibial plateau and the tibial tubercle. It was pinned in the place and it was drilled with the reamer x 2 for the mobile-bearing revision tibial tray. The keel punch trial was applied and the keel punch was made. Trialing was then performed with an 8 mm thick spacer which gave full extension neutral alignment there was trace varus valgus laxity at 20 degrees of flexion and no significant laxity at 90. At this time the tourniquet was let down. Meticulous hemostasis was achieved. Ortho joint mix was injected into the back the knee. Soft tissues were kept moist throughout the surgical procedure. The medial skin flap was tied back to the medial skin at the beginning of the procedure to prevent it from invaginating and becoming damaged. The canal of the tibia was plugged. After being down for 15 minutes the limb was very exsanguinated with a spacer in place. Copious irrigation of the knee was performed and pulsatile lavage with drying of the bony surfaces. 2 bags of Simplex P cement with 2 total grams of vancomycin was mixed for minute and 15 seconds. Smears were placed on the posterior condyle and the lug holes. Cement was placed on the posterior condyles of the implant. The components were cemented in place femur followed by tibia with a trial spacer held in full ex tension until cement hardened. At that point the tourniquet was let down again after total of about 134 minutes of inflation. There was no significant bleeding present. Patellar tracking was fine with no hands technique. The after mentioned laxity profile applied and I did not think that a smaller or thicker polyethylene was necessary. The back of the knee was inspected for cement. Some was encountered on the medial femoral condyle and on the posterolateral aspect of the tibia. Irrigation was performed and the final polyethylene was inserted. Half gram of vancomycin was applied deep to the extensor mechanism and half superficial. The extensor mechanism was closed with interrupted #2 FiberWire above the greater the patella and running and interrupted #1 Vicryl below. The skin was closed in layers with 0 and 2-0 Vicryl followed by janet. Leg was cleaned with wet and dry sponges and a saw sterile dressing was applied Xeroform 4 x 4's ABD soft wrap Giovani wrap and a knee immobilizer. The patient began to move his leg towards end of the surgical procedure was necessitated converting to an LMA.[place] assisted flexion with extensor mechanism closed was 105 to 110 degrees. Patient was wake from anesthesia without difficulty and taken to the recovery in stable condition. There were no complications counts were correct and blood loss is estimated to be 5 cc. Resected bone and soft tissue were sent for specimen. At the conclusion the operation as per the patient's family informed of my findings. Postop instructions were given. Plan is to weight- bear as tolerated and rehabilitate according to the standard total knee protocol. The patella was unresurfaced. The [employer] knee system was utilized. A size 9 right posterior stabilized femur with a size 9 x 8 mm thick polyethylene insert and an 8 mm mobile-bearing revision tibial tray. I attest to the content of the Intraoperative Record and any orders documented therein. Any exceptions are noted below.
--- NOTE | 2024-10-27 11:27 | Operative Report ---
Post Operative Report Pre & Post Diagnosis Operation Date: 10/27/24 07:00 Pre-Op Diagnosis: Right Knee Osteoarthritis Post-Op Diagnosis: Right Knee Osteoarthritis I identified the patient and participated in the time-out.: Yes Procedure Operation Date: 10/27/24 07:00 Actual Procedures p Right Total Knee Arthroplasty, Cemented(Right) - Alessandro Cruz MD Surgeon Alessandro Cruz MD Rehabilitation Manager Butch Read PA-C, no resident or fellow available Estimated Blood Loss 5 Findings Consistent with Post-Op Diagnosis Specimens Bone and soft tissue right knee Description of Procedure I was present for the entire case. I assisted with patient positioning, prepping, draping, retraction, suctioning, hardware placement, irrigation, wound closure, and dressing application. Please refer to Dr. Cruz's procedure note for full details. I attest to the content of the Intraoperative Record and any orders documented therein. Any exceptions are noted below.
--- NOTE | 2024-10-27 11:40 | XRay Report ---
XR knee RT 1 or 2V routine CLINICAL HISTORY: Surgical Post Op COMPARISON: 10/02/2024 FINDINGS: Interval right knee prosthesis shows no hardware complication. There is expected soft tiss ue gas. Skin janet are present. IMPRESSION: Unremarkable postoperative exam. ACT 112: Negative or not required by law. Electronically signed by: Rene Gaytan M.D. 10/27/2024 11:39 AM
--- NOTE | 2024-10-27 11:40 | Anesthesiology Progress Note ---
Date of Service October 27, 2024 Anesthesia Post Procedure Vital Signs Vital Signs: Temp Pulse Resp BP Pulse Ox O2 Del Method O2 Flow Rate 10/27/24 11:35 88 18 147/79 H 93 Nasal Cannula 3 10/27/24 11:25 97.9 F 80 15 129/80 95 Oxymask 4 10/27/24 11:15 78 17 153/78 H 97 Oxymask 13 10/27/24 11:05 98.4 F 85 14 150/76 H 97 Oxymask 13 10/27/24 05:35 98.6 F 70 20 157/77 H 95 Room Air Pain Intensity Right Knee: Pain Intensity: 6 Transfer of Care Handoff Completed per policy Notes Mental Status: alert / awake / arousable and participated in evaluation Patient Amnestic to Procedure: Yes Nausea / Vomiting: adequately controlled Pain: adequately controlled Airway Patency, RR, SpO2: stable & adequate BP & HR: stable & adequate Hydration State: stable & adequate Neuraxial Anesthesia: was administered and sensory block is resolving Anesthetic Complications: no major complications apparent and Pt Satisfied with anesthetic care
[2024-10-27] MEDS ORDERED: MAGNESIUM HYDROXIDE SUSP 30 ML UDC PO PRN (13:06)
[2024-10-27] MEDS ORDERED: bisacodyL 10 MG SUPP PR PRN (13:06)
[2024-10-27] MEDS ORDERED: NALOXONE HCL 0.4 MG/1 ML VIAL/CARP IV PRN (13:06)
[2024-10-27] MEDS ORDERED: TAMSULOSIN HCL 0.4 MG CAP PO PRN (13:06)
[2024-10-27] MEDS ORDERED: METOCLOPRAMIDE HCL INJ 5 MG/ML 2 ML VIAL IV PRN (13:06)
[2024-10-27] MEDS ORDERED: oxyCODONE HCL IR 5 MG TAB (IMMEDIATE RELEASE) PO PRN (13:06)
[2024-10-27] MEDS ORDERED: diphenhydrAMINE 50 MG/ML VIAL IV PRN (13:06)
[2024-10-27] MEDS ORDERED: HYDROmorphone INJ 0.5 MG/0.5 ML SYR IV PRN (13:06)
[2024-10-27] MEDS ORDERED: GABAPENTIN 300 MG CAP PO PRN (13:06)
[2024-10-27] MEDS ORDERED: ALUMINUM/MAGNESIUM SUSP 30 ML UDC PO PRN (13:06)
[2024-10-27] MEDS ORDERED: traMADol HCL 50 MG TABLET PO PRN (13:06)
[2024-10-27] MEDS: SODIUM CHLORIDE 0.9% 1,000 ML IV SCH (14:05)
[2024-10-27] MEDS: KETOROLAC TROMETHAMINE 15 MG/ML VIAL IV SCH (14:06)
[2024-10-27] MEDS ORDERED: PHARMACY GLYCEMIC MGMT CONSULT PRN (15:41)
--- NOTE | 2024-10-27 15:44 | Orthopedic Progress Note ---
Date of Service October 27, 2024 Assessment & Plan (1) Knee joint replacement status: Plan: Radiographs are reviewed and show good positioning of the implants. The patella is undersurface there is no fractures dislocations or complications. He is stable postoperatively. I educated about the findings relative the surgery. We discussed the postoperative plan. Rest ice elevation. Eliquis beginning in the morning. PT OT. Routine postop antibiotics. Admission and Anticipated Discharge Date Admission Date: October 27, 2024 Subjective Patient seen and evaluated. He is resting comfortably status post right total knee arthroplasty. He is breathing fine and reports no pain paresthesias or other problems. Physical Exam Physical Exam: Dressing is clean and dry. I elevated the leg on 2 pillows. Knee immobilizer in place. He has 5 out of 5 ankle and toe plantarflexion dorsiflexion inversion eversion strength. Capillary refills less than 2 seconds. The foot is warm and sensation intact throughout the foot. DP is not palpable but positive Doppler. PT is 1+ palpable. Results & Data Vital Signs (Past 12 Hours) Vital Signs Temp Pulse Pulse Resp BP Pulse Ox O2 Del Method 10/27/24 15:29 36.5 C 90 16 136/79 92 Nasal Cannula 10/27/24 14:07 36.6 C 85 16 130/78 92 Nasal Cannula 10/27/24 13:40 36.6 C 84 18 152/84 H 94 Nasal Cannula 10/27/24 13:07 36.8 C 95 H 18 130/82 93 Nasal Cannula 10/27/24 13:06 Nasal Cannula 10/27/24 12:45 71 15 126/72 93 Nasal Cannula 10/27/24 12:30 77 13 149/82 H 93 Nasal Cannula 10/27/24 12:15 68 14 136/73 93 Nasal Cannula 10/27/24 12:00 86 15 133/74 94 Nasal Cannula 10/27/24 11:45 88 18 149/82 H 94 Nasal Cannula 10/27/24 11:35 88 18 147/79 H 93 Nasal Cannula 10/27/24 11:25 36.6 C 80 15 129/80 95 Oxymask 10/27/24 11:15 78 17 153/78 H 97 Oxymask 10/27/24 11:05 36.9 C 85 14 150/76 H 97 Oxymask 10/27/24 05:35 37 C 70 20 157/77 H 95 Room Air O2 Flow Rate 10/27/24 15:29 2.5 10/27/24 14:07 2 10/27/24 13:40 2.5 10/27/24 13:07 2.5 10/27/24 13:06 2.5 10/27/24 12:45 4 10/27/24 12:30 4 10/27/24 12:15 3 10/27/24 12:00 3 10/27/24 11:45 3 10/27/24 11:35 3 10/27/24 11:25 4 10/27/24 11:15 13 10/27/24 11:05 13 10/27/24 05:35
[2024-10-27] MEDS ORDERED: GLUCAGON FOR INJ 1 MG VIAL SQ PRN (16:15)
[2024-10-27] MEDS ORDERED: GLUCOSE 40% GEL 15 GM TUBE PO PRN (16:15)
[2024-10-27] MEDS ORDERED: GLUCOSE 10 TAB/TUBE PO PRN (16:15)
[2024-10-27] MEDS ORDERED: DEXTROSE 50% 50 ML SYRINGE IV PRN (16:15)
[2024-10-27] MEDS ORDERED: CARBOHYDRATES FOR HYPOGLYCEMIA PO PRN (16:15)
[2024-10-27] MEDS: TRANEXAMIC ACID / 0.7% NACL 1,000 MG/100 ML BAG IV SCH (16:57)
[2024-10-27] MEDS: INSULIN ASPART PER UNIT CHARGE SC SCH (17:30)
[2024-10-27] MEDS: DOCUSATE SODIUM 100 MG CAP PO SCH (21:51)
[2024-10-27] MEDS: SENNA 8.6 MG TAB PO SCH (21:51)
[2024-10-28 04:32] VITALS: O2SAT 92
[2024-10-28 07:25] VITALS: BP 134/72; PULSE 88; RESP 16; TEMP 98.2
[2024-10-28 07:57] LABS: Hematocrit (blood only) 35.8 % (42.0-52.0); Hemoglobin 12.2 g/dl (14.0-18.0); Mean Corpuscular Hemoglobin 32.4 pg (25.0-34.0); Mean Corpuscular Hgb Conc 34.1 g/dL (32.0-36.0); Mean Platelet Volume 9.2 fL (9.4-12.4); Platelet Count 205 K/uL (130-400); RDW Coefficient of Variation 13.2 % (11.5-14.5); RDW Standard Deviation 45.7 fL (36.4-46.3); Red Blood Count 3.77 M/uL (4.70-6.10); White Blood Count 15.91 K/ul (4.8-10.8)
[2024-10-28 08:19] LABS: BUN Creatinine Ratio 22.7 (10-20); Creatinine Clr Calc Pharmacy 112.9 ml/min; Potassium 4.5 mmol/L (3.5-5.1)
[2024-10-28] MEDS: SPIRONOLACTONE 25 MG TAB PO SCH (08:41)
[2024-10-28] MEDS: MULTIVITAMIN TAB PO SCH (08:42)
[2024-10-28] MEDS: CYANOCOBALAMIN (B-12) 500 MCG TABLET PO SCH (08:42)
[2024-10-28] MEDS: APIXABAN 2.5 MG TAB PO SCH (08:42)
[2024-10-28] MEDS: LOSARTAN POTASSIUM 50 MG TAB PO SCH (08:43)
[2024-10-28] MEDS: amLODIPine BESYLATE 5 MG TAB PO SCH (08:43)
[2024-10-28] MEDS: MAGNESIUM OXIDE 400 MG TAB PO SCH (08:43)
--- NOTE | 2024-10-28 10:03 | Discharge Summary ---
Date of Service October 28, 2024 Admission HPI Per Admitting Provider History of Present Illness (including history relevant to procedure): This 58-year-old male presents the clinic today for his preoperative history and physical. Patient complains of a 10-year history of persistent right knee pain localized to the medial aspect of the knee. Patient states that over the past few years he has noticed that his range of motion has been significantly limited. He has tried corticosteroid injections, hyaluronic acid injections, has used nonsteroidal agents and done physical therapy without any relief of his symptoms. Due to failed conservative management patient is electing to proceed with surgical intervention at this time. Review Of Systems: A 12 point review of systems is performed and is unremarkable except for those things stated in the HPI and past medical history. Past Medical History: Problems: Primary osteoarthritis of right knee Right foot pain Right knee pain Hypertension Hypercholesterolemia Heart murmur Sleep apnea with CPAP use Hand and foot numbness Hiatal hernia Obesity History of renal calculi Procedure History Procedure Procedure Date Comments Shoulder surgery Allergies and Sensitivities: Sudafed Current Home Meds: (Last Updated 10/02 13:40) amLODIPine (amLODIPine 10 mg oral tablet) diclofenac (diclofenac sodium 75 mg oral delayed release tablet) ergocalciferol (Vitamin D2 1.25 mg (50,000 intl units) oral capsule) 50,000 Int_Unit PO q7days losartan (losartan 100 mg oral tablet) magnesium gluconate Daily multivitamin (Vitamin B Complex) spironolactone (spironolactone 50 mg oral tablet) TAKE 1 TABLET BY MOUTH EVERY DAY Initial Wt: 10/02 139.0 kg 306 lb Principal Diagnosis right knee osteoarthritis, status post right total knee arthroplasty Discharge Data Allergies Allergy/AdvReac Type Severity Reaction Status Date / Time pseudoephedrine AdvReac Unknown elevated bp Verified 10/27/24 06:04 [From Sudafed] Procedures Performed Operation Date: 10/27/24 07:00 Actual Procedures p Right Total Knee Arthroplasty, Cemented(Right) - Alessandro Cruz MD Hospital Course (1) Knee joint replacement status: Matt is a 58-year-old male with a history of right knee osteoarthritis who underwent an uncomplicated right total knee arthroplasty with Dr. Cruz on 10/27/2024. He was observed overnight. His pain was controlled. Vitals remained stable. He received IV Ancef for 24 hours. Postop labs demonstrated a leukocytosis at 15.91 likely secondary to steroids and stress response from surgery. No evidence of infection. Mild anemia hemoglobin 12.2 likely secondary to acute blood loss from surgery. Postoperative x-rays showed expected findings with no acute abnormalities. His exam postop day #1 demonstrated ability to just raise the leg up in the air so he was encouraged to use knee immobilizer when he was ambulating until he can perform a straight leg raise without the knee immobilizer in place. He will use the rolling walker at all times. Patient participated with physical therapy and Occupational Therapy and the plan will be to discharge him home today. He will work on range of motion exercises as instructed. Discussed wound care instructions with him. Pain control with Tylenol, oxycodone, and tramadol. DVT prophylaxis with MYRON stockings, Eliquis 2.5 mg twice daily. Patient has home alf and physical therapy scheduled for the next 2 weeks. He has a 2-week appointment scheduled with Dr. Cruz in our clinic. Patient will contact our office with any questions or concerns. Total Time Total Time Spent Total Time Spent (In Minutes): 20 Discharge Plan Discharge Items Patient Disposition: Home - Home Health Services Reason For Visit: Right Knee Osteoarthritis Discharge Diagnosis: Right knee osteoarthritis Activity: Per Instructions section Non-emergency contact: Surgeon Call non-emergency contact if: your symptoms worsen, your pain is not controlled, you have a fever, your wound has increased redness and your wound has increased drainage Follow-up/Referrals: Alessandro Cruz MD [Surgeon] - 11/13/24 10:30 am PCP,NO [Physician] - Diet: Carb Consistent or DM2 Addtl Attending Provider Instructions: New Medicine: * You will likely be taking one or more of these medications: 1. Eliquis 2.5 mg twice daily. You will be on this for 2-4 weeks after surgery. Do not take NSAIDS (ibuprofen, aleve, advil) while on Eliquis. Aspirin, 81 mg is OK. 2. Oxycodone - Take 1-2 tablets every 4-6 hours as needed for pain. Take for severe pain, alternate with Tramadol 3. Tramadol - Take, 1-2 tablets every 4-6 hours as needed for pain. Take for mild-moderate pain. Alternate with Oxycodone. 4. Colace & Senokot - Take to prevent constipation which can be caused by narcotics. These can be bought [id number] at the pharmacy 5. Tylenol - extra strength, take 2 tablets (1000mg) every 8 hours to control your pain. Do this consistently for the first 3-7 days, then as needed. 6. Cefadroxil 500 mg oral tablet - Take 1 tablet twice daily x 7 days after surgery. This was sent to your pharmacy. * The most common side effects of pain medicine and iron are nausea and constipation. If nausea or constipation is too much of a problem or if you have any questions about your new medicines or doses, call [facility] at . We will try to help you manage these issues. "VERY IMPORTANT TO READ AND REVIEW" Blood Clots and Blood Thinning Medicine: * You are given Eliquis during the immediate post-operative period to lessen the risk of blood clots forming in your legs and/or lungs. Eliquis is usually given for 4-[address] Cruz will let you know when to stop taking it. Physical Therapy: * Do your physical therapy at home. These are the exercises you learned while in the hospital (quad sets, leg raises, calf pumps, gluteal squeezes, knee bending, and heel props.) You should do these exercises 3-4 times per day. * You will either go to inpatient rehab ([facility]), home with Home Therapy and nursing, or home with outpatient rehab. You should do rehab with the therapist 2-3 times per week. You should do therapy on your own daily. * You may bear full weight on your leg with crutches or walker unless otherwise advised. Home Exercise: * You were shown a series of exercises (heel props, heel slides, etc.) in the hospital. Do these exercises three to four times each day including the exercises you were shown in physical therapy. Walking: * You may be up for short periods of time. Standing and walking for 1-2 hours at a time is usually okay. You should not stand or walk for excessive periods of time as this may Cause increased pain and swelling. SELF CARE INSTRUCTIONS AFTER TOTAL KNEE REPLACEMENT A. You will continue a physical therapy program after discharge from the [facility]. 1. Home therapy for 2 weeks, then outpatient PT. 2. Continue working on all exercises taught to you in the hospital. Your goals should be to increase bending of your knee to 90 degrees and beyond and to fully straighten your knee. B. Your therapist will notify you when you are able to progress from a walker to a cane. C. Wear TEDS as much as possible.~ They may be removed at night for laundering. D. Do not place a pillow behind your knee when resting. A pillow at your ankle, or behind your calf is okay. E. Ice your knee 15-20 minutes every 2-3 hours and elevate it above the level of your heart. F. You may shower on the fourth day after surgery using regular soap and water. Do not submerge until the wound is completely healed (approximately 2 weeks). Until the fourth day after surgery, cover the incision/bandage with a bag or plastic wrap. G. Anyone who is touching your surgical incision area should wash their hands and wear gloves. H. Keep your incision covered with gauze pads under the MYRON hose until it is dry. I. Continue Knee immobilizer when out of bed for 4 days after surgery. VERY IMPORTANT TO READ AND REVIEW A. There are a few signs you need to watch for after you are home. Call [facility] if you notice any of the followin. Increased severe knee pain. Some pain is expected especially when you exercise. 2. Increased swelling in your leg or knee; pain or swelling of the calf muscle in either lower leg. 3. Any fluid drainage from the incision. 4. Shortness of breath or chest pain. 5. Numbness and tingling in the surgical extremity B. Please call [facility] at if you have any concerns or questions about your operation or recovery. The doctor or his nurse will return your call promptly. C. Do not have any elective dental work or other elective procedures done for 6 weeks after your knee replacement. When you have any invasive procedure (dental cleaning, extraction, colonoscopy etc) performed, you will need to take antibiotics to prevent infection from developing in your artificial joint. Tell your other health care providers you have an artificial joint. My office will supply you with further information and the antibiotics. Call your doctor if: * Temperature above 101 degrees F. * Pain not relieved by pain medicine ordered. * Increased drainage or redness from incision. * Notify your doctor with any questions or concerns. Follow-up Visit: You will follow-up with Dr. Cruz 10-14 days after surgery. The office number is . Avoid all tobacco products. If you need help to stop smoking, call [facility] FREE QUITLINE at . This is a free call. Pending Studies at Discharge: Yes Studies:: Right knee bone and soft tissue Stand-Alone Forms: My [facility], Smoking Cessation Medications and DC Order Prescriptions: New acetaminophen [Tylenol Extra Strength] 500 mg Tablet 1,000 mg PO Q8H Qty: 30 0RF Eliquis 2.5 mg Tablet 2.5 mg PO BID 14 Days Qty: 28 2RF docusate sodium 100 mg Capsule 100 mg PO BID Qty: 30 0RF sennosides [Senokot] 8.6 mg Tablet 17.2 mg PO HS Qty: 30 0RF tramadol 50 mg Tablet 50 - 100 mg PO Q4H PRN (Reason: pain) Qty: 18 0RF Rx Instructions: Alternate with oxycodone oxycodone 5 mg Tablet 5 - 10 mg PO Q4H PRN (Reason: pain) Qty: 18 0RF Rx Instructions: Alternate with tramadol cefadroxil 500 mg capsule 500 mg PO BID 7 Days Qty: 14 0RF Continued multivitamin Tablet 1 tab PO QAM cyanocobalamin (vitamin B-12) [Vitamin B-12] 1,000 mcg Tablet 1,000 mcg PO DAILY amlodipine 10 mg Tablet 10 mg PO QAM gabapentin 300 mg Capsule 300 mg PO HS PRN (Reason: Pain) magnesium 250 mg Tablet 250 mg PO DAILY ergocalciferol (vitamin D2) [Vitamin D2] 1,250 mcg (50,000 unit) Capsule 1,250 mcg PO WK Rx Instructions: sundays losartan 100 mg Tablet 100 mg PO QAM spironolactone 50 mg Tablet 50 mg PO QAM aspirin 81 mg Tablet,Chewable 81 mg PO DAILY Held diclofenac sodium 75 mg Tablet,Delayed Release (Dr/Ec) 75 mg PO QAM Hold Instructions: Resume on 12/09/24. Krames/Other Patient Handouts: Knee Replace Home Recovery Admission Data Admit Date/Time: 10/27/24 11:20 Attending Provider: Alessandro Cruz Admit Provider: Alessandro Cruz Primary Care Provider: Sarah Branch Other Providers: [facility],Referral Center; [facility],Home Healthcare Other Interventions: Discharge Summary Assessment (RN) Last Done: 10/28/24 10:16
--- NOTE | 2024-10-28 10:04 | Orthopedic Progress Note ---
Date of Service October 28, 2024 Assessment & Plan (1) Knee joint replacement status: Plan: Postop day #1 status post right total knee arthroplasty with Dr. Cruz. Pain is well-controlled. Vitals are stable. Postoperative labs show leukocytosis 15.91 likely secondary to steroids and stress response from surgery. No evidence of infection. Mild anemia hemoglobin 12.2 likely secondary to acute blood loss from surgery. Postoperative x-rays showed expected findings with no acute abnormalities. Patient is able to just raise his legs slightly with the knee immobilizer in place so he was encouraged to use this when ambulating until he can perform a straight leg raise without the knee immobilizer with no lag. He will use the rolling walker at all times. Neurovascularly intact. Dressing was clean, dry, and intact, left in place. Patient will be participating with physical therapy and Occupational Therapy and will be discharged home today as long as he is cleared by them. He will work on range of motion exercises as instructed. Wound care instructions reviewed with him and listed in the discharge paperwork. Pain control with Tylenol, oxycodone, tramadol. DVT prophylaxis with MYRON stockings, Eliquis 2.5 mg twice daily. Patient has home assisted and physical therapy scheduled for the next 2 weeks. He has a 2-week appointment scheduled with Dr. Cruz in our clinic. He will contact our office with any questions or concerns. Admission and Anticipated Discharge Date Admission Date: October 27, 2024 Arleen Gutierrez is seen sitting upright in chair today. He is accompanied by his . He states that he is doing well overall. Was able to sleep for about 5 hours straight last night which he is happy with. His pain is controlled. He denies any chest pain, shortness of breath, fever, chills, nausea, vomiting. States that he always has a little bit of numbness in both of his feet but denies any new numbness or tingling below his knees. He will be participating with physical therapy and Occupational Therapy and feels comfortable being discharged today. Physical Exam Constitutional: Resting comfortably sitting upright in chair. No distress. Pleasant. Cardiovascular: Right DP pulse 2+ Musculoskeletal: Right lower extremity: Giovani wrap and dressing is in place. Clean, dry, intact. Knee immobilizer in place, fitting well. Patient able to just perform a straight leg raise however this is uncomfortable for him. Strength 5/5 with ankle plantarflexion, dorsiflexion, eversion. Moves all toes. Neurologic: Sensation in bilateral lower extremities to light touch is equal and baseline per patient. Results & Data Vital Signs (Past 12 Hours) Vital Signs Temp Pulse Resp BP Pulse Ox O2 Del Method 10/28/24 07:51 Room Air 10/28/24 07:22 98.2 F 88 16 134/72 92 Room Air 10/28/24 04:31 97.9 F 85 18 130/78 92 CPAP 10/27/24 23:00 98.2 F 96 H 18 133/82 93 Room Air, CPAP Laboratory Results 10/28/24 10/28/24 10/27/24 07:46 07:38 20:29 WBC 15.91 H RBC 3.77 L Hgb 12.2 L Hct 35.8 L MCV 95.0 MCH 32.4 MCHC 34.1 RDW Std Deviation 45.7 RDW Coeff of Komal 13.2 Plt Count 205 MPV 9.2 L Sodium 137 Potassium 4.5 Chloride 102 Carbon Dioxide 28 Anion Gap 7 BUN 22 Creatinine 0.97 Est Cr Clr Drug Dosing 112.9 eGFR 89.37 BUN/Creatinine Ratio 22.7 H Glucose 146 H POC Glucose 139 H 178 H Calcium 9.0 10/27/24 16:37 WBC RBC Hgb Hct MCV MCH MCHC RDW Std Deviation RDW Coeff of Komal Plt Count MPV Sodium Potassium Chloride Carbon Dioxide Anion Gap BUN Creatinine Est Cr Clr Drug Dosing eGFR BUN/Creatinine Ratio Glucose POC Glucose 168 H Calcium (1) Knee joint replacement status Laterality: right Qualified Code(s): Z96.651 - Presence of right artificial knee joint
== END 2024-10-28 11:13 | disposition home health service (06) ==
LOC: 3N 05:21 → ASU 05:21

== ENCOUNTER 2024-11-03 13:59 | Inpatient (IN) ==
--- NOTE | 2024-11-03 14:36 | History & Physical Report ---
Date of Service November 03, 2024 Assessment & Plan (1) S/P total knee arthroplasty: Plan: Patient is status post a right total knee arthroplasty on October 27, [address] Cruz. He presented to the office today with increased pain, swelling, redness and warmth of the right lower extremity. He is being admitted for observation and treatment of inflammatory process versus infectious. We will start him on IV cefepime and vancomycin. A glycemic control consult will be placed for management of his type 2 diabetes. He was given a regular diabetic diet. He will be prescribed oxycodone, tramadol and Tylenol as needed for pain. He may be out of bed, weight-bear as tolerated on her right lower extremity with a walker. For the time being recommended strict elevation of his right lower extremity on 3-4 pillows. A dressing was placed to his right leg with T ubigrip in the office today.We will order an ultrasound of his right lower extremity to rule out DVT. Patient understands and agrees with the plan. Report was provided to his excepting nurse. He will be directly admitted from our office to [facility]. No plans for surgical intervention at this time. History of Present Illness Chief Complaint: Right leg pain, redness and swelling x 4 days Primary Care Provider: Sarah Branch PA-C Matt Boucher is a 58 year old Male who presents today for wound check of his right leg s/p knee replacement. He complains of the most discomfort in the right yip and has redness in the lower leg area which has been present since returning home from the hospital on 10/28/2024. He feel the redness has progressed. Patient reports he does not have any pain in the knee itself. He also has swelling and blistering on the posterolateral aspect of his knee. He has been elevating but not above the heart. Home nursing was concerned for MRSA or other infection. He denies any symptoms of fever, chills, or drainage for the incision. He denies any history of gout. He underwent a right total knee arthroplasty with Dr. Cruz on October 27, 2024. He has been ambulating with his walker. Has not had any known injury to the knee. Has been taking oxycodone, Tylenol and tramadol for pain. Pain has been fairly well-controlled. He was seen and evaluated today by Dr. Cruz in the outpatient clinic. It was advised that he be admitted to the hospital for IV antibiotics, blood work, ultrasound of the right lower extremity and observation. He is agreeable to this plan. Allergies Allergy/AdvReac Type Severity Reaction Status Date / Time pseudoephedrine AdvReac Unknown elevated bp Verified 10/27/24 06:04 [From [facility]] Home Medications Medication Instructions Recorded Confirmed Type amlodipine 10 mg tablet 10 mg PO QAM 09/23/24 10/27/24 History cyanocobalamin (vitamin B-12) 1,000 mcg PO DAILY 09/23/24 10/27/24 History 1,000 mcg tablet (Vitamin B-12) diclofenac sodium 75 mg 75 mg PO QAM 09/23/24 10/27/24 History tablet,delayed release ergocalciferol (vitamin D2) 1,250 1,250 mcg PO WK 09/23/24 10/27/24 History mcg (50,000 unit) capsule (Vitamin D2) gabapentin 300 mg capsule 300 mg PO HS PRN Pain 09/23/24 10/27/24 History losartan 100 mg tablet 100 mg PO QAM 09/23/24 10/27/24 History magnesium 250 mg tablet 250 mg PO DAILY 09/23/24 10/27/24 History multivitamin 1 tab PO QAM 09/23/24 10/27/24 History spironolactone 50 mg tablet 50 mg PO QAM 09/23/24 10/27/24 History aspirin 81 mg chewable tablet 81 mg PO DAILY 10/27/24 10/27/24 History acetaminophen 500 mg tablet 1,000 mg (2 x 500 mg) PO Q8H #30 10/28/24 Rx (Tylenol Extra Strength) tabs apixaban 2.5 mg tablet (Eliquis) 2.5 mg PO BID 2 weeks #28 tabs 10/28/24 Rx cefadroxil 500 mg capsule 500 mg PO BID 7 days #14 caps 10/28/24 Rx docusate sodium 100 mg capsule 100 mg PO BID #30 caps 10/28/24 Rx oxycodone 5 mg tablet 5 - 10 mg (1 - 2 x 5 mg) PO Q4H 10/28/24 Rx PRN pain #18 tabs sennosides 8.6 mg tablet (Senokot) 17.2 mg (2 x 8.6 mg) PO HS #30 tabs 10/28/24 Rx tramadol 50 mg tablet 50 - 100 mg (1 - 2 x 50 mg) PO Q4H 10/28/24 Rx PRN pain #18 tabs Past Med/Surg History Problem List (Updated 11/03/24 @ 14:31 by Tonya Gallagher PA-C) Knee joint replacement status Medical History Osteoarthritis of right knee Encounter for pre-operative examination Pre-diabetes "borderline" Sleep apnea bipap w/ O2 @ 2lpm HTN (hypertension) controlled, stable per pt Surgical History (Updated 11/03/24 @ 14:31 by Tonya Gallagher PA-C) S/P total knee arthroplasty Hx of tonsillectomy Hx of shoulder surgery right Social History Smoking Status: Never smoker Tobacco Type: Smokeless Tobacco (Dip or Chew) Second Hand Exposure: Yes (hx); Do You Dip or Chew Tobacco: Yes (advised); Hx Alcohol Use: Yes (6-12 beers daily) Alcohol type: beer Hx Substance Use: No Preferred Language: Romansh Communication Ability: Effective Strap Stitcher Required: No Beliefs That Will Affect Care: None Current Living Situation: Spouse Feels Safe at Home: Yes Assistive Devices: BiPap, Cane, Raised Toilet Seat and Walker Physical Exam Constitutional: well developed, well nourished, healthy appearing, well groomed and comfortable; no acute distress and no altered mental status Temperature on exam: 36.6 C Eyes: PERRL, conjunctivae normal, anicteric sclerae ENMT: external ear and nose normal, oropharynx normal Neck: trachea midline, no thyromegaly Respiratory: normal respiratory effort, lungs clear to auscultation Cardiovascular: RRR, no murmur, no edema Chest (Breasts): Chest: normal inspection of chest Gastrointestinal (Abdomen): normal bowel sounds, soft, nontender, no hepat osplenomegaly Musculoskeletal: Focus on the right lower extremity: 1+ DP and 1+ PT pulses Sensation intact 5/5 strength: ankle and toe plantarflexion and dorsiflexion ROM: 0 / 2 / 60 Unable to do an active straight leg raise Trace intra-articular effusion Incision is benign There is one large blister measuring 2-3 cm x 6-8 cm. There are two smaller 1.5 cm blisters on the posterolateral aspect of the knee Extensive bruising on the posterior leg. Erythema over the anterior leg area from the distal incision down to the ankle. Improves with elevation Mild calf tenderness, Negative Homans sign 1+ swelling of the leg area. Foot is not swollen Skin: no rashes, warm and dry + ecchymosis (RLE) and + erythema (RLE) Neurologic: PERRL, EOMI, accommodation nl, no face palsy, no dysarthria Psychiatric: A+Ox3, euthymic affect Results & Data Results & Data Vital Signs (Past 12 Hours) Temperature taken in the office was 36 degrees Celsius Laboratory Results CBC, BMP, ESR and CRP are pending. Diagnostic Findings Ultrasound to rule out DVT of the right lower extremity ordered, currently pending Code Status & VTE Plan VTE Prophylaxis Plan VTE Prophylaxis will be ordered: Yes
[2024-11-03 15:21] LABS: Basophils # (auto) 0.04 K/uL (0.00-0.20); Basophils % (auto) 0.4 %; Eosinophils # (auto) 0.29 K/uL (0.00-0.50); Eosinophils % (auto) 3.1 %; Hematocrit (blood only) 35.3 % (42.0-52.0); Hemoglobin 11.8 g/dl (14.0-18.0); Immature Granulocytes # (auto) 0.17 K/uL (0.01-0.20); Immature Granulocytes % (auto) 1.8 %; Lymphocytes # (auto) 1.31 K/uL (1.20-3.40); Mean Corpuscular Hemoglobin 32.2 pg (25.0-34.0); Mean Corpuscular Hgb Conc 33.4 g/dL (32.0-36.0); Mean Corpuscular Volume 96.2 fL (80.0-100.0); Monocytes # (auto) 0.98 K/uL (0.11-0.59); Monocytes % (auto) 10.5 %; Neutrophils # (auto) 6.54 K/uL (1.40-6.50); Neutrophils % (auto) 70.2 %; Platelet Count 365 K/uL (130-400); RDW Coefficient of Variation 13.2 % (11.5-14.5); RDW Standard Deviation 47.2 fL (36.4-46.3); Red Blood Count 3.67 M/uL (4.70-6.10); White Blood Count 9.33 K/ul (4.8-10.8)
[2024-11-03 16:23] LABS: BUN Creatinine Ratio 21.1 (10-20); C Reactive Protein 4.89 mg/dl (0-0.5); Calcium 9.8 mg/dl (8.6-10.3); Creatinine Clr Calc Pharmacy 141.3 ml/min; Potassium 4.1 mmol/L (3.5-5.1)
--- NOTE | 2024-11-03 17:55 | Pharmacy Report ---
Pharmacy Glycemic Short Note 2 - Date of Service November 03, 2024 - Glycemic Short BSG Results (Last 24 hours): 11/03/24 11/03/24 15:00 17:47 Glucose 114 H POC Glucose 150 H OUTPATIENT ANTIDIABETIC REGIMEN: * None * HbA1c ordered for 11/04/24 ASSESSMENT: * 58 yo M with diet-controlled T2DM on no diabetes medications admitted with possible infected joint from TKA on 10/27. * BSG x1 here in goal range. * No basal until/unless BSG above 140 mg/dL * Initiate Novolog at slightly looser than weight-based moderate stress estimate PLAN FOR INPATIENT GLYCEMIC CONTROL: * Basal insulin * Lantus 10-20 units SQ x1 tonight, but only if BSG > 140 mg/dL * Bolus insulin * NovoLog per scale ACHS or Q6hrs while NPO * Goal Range: Low 110 mg/dL - High 140 mg/dL * Correction Factor: 25 mg/dL/unit * Nutritional / Prandial insulin per carb ratio of 1 unit per 8 grams CHO consumed
--- NOTE | 2024-11-03 18:30 | Pharmacy Report ---
Pharmacy PK ABX Note - Date of Service November 03, 2024 - Assessment and Plan Assessment * 58 year old M receiving cefepime and vancomycin for treatment of possible post-op surgical site infection after TKA 10/27. Per Tonya Gallagher - low concern for septic joint. * SCr stable and at/near baseline Plan Vancomycin * Loading dose: 2750 mg IV x 1 * Maintenance dose: 1500 mg IV every 12 hours * Regimen is predicted to achieve target AUC/CONRADO of 400-600 mg/L.hr * Random level ordered for 11/05 @ 0330 Pharmacy will continue to follow and will adjust dose/frequency as necessary. Thank you. Pharmacy has transitioned to AUC monitoring for vancomycin. AUC/CONRADO is the preferred PK/PD target and is associated with decreased risk of nephrotoxicity compared to traditional trough targets.
--- NOTE | 2024-11-03 23:53 | Ultrasound Report ---
Exam(s): US VENOUS RIGHT LOWER EXTREMITY EXAM: US Duplex Right Lower Extremity Veins CLINICAL HISTORY: Reason for exam: Right leg swelling/ erythema, s/p right TKA. TECHNIQUE: Real-time duplex ultrasound scan of the right lower extremity veins integrating B-mode two-dimensional vascular structure, Doppler spectral analysis, color flow Doppler imaging and compression. COMPARISON: No relevant prior studies available. FINDINGS: The exam is limited. Deep veins: No DVT in the visualized common femoral, femoral, proximal deep femoral or popliteal veins. The veins demonstrate normal color flow, are normally compressible, with normal phasic flow and/or augmentation response. Superficial veins: No thrombus in the visualized great saphenous vein. Soft tissues: No acute findings. No popliteal cyst. IMPRESSION: No ultrasound evidence of deep venous thrombosis in the right lower extremity.. Electronically signed by: Garrick Putnam MD 11/03/24 23:53 PM
[2024-11-04 06:19] LABS: Creatinine Clr Calc Pharmacy 115.5 ml/min
[2024-11-04 07:57] LABS: Estimated Average Glucose 120 mg/dl; Hemoglobin A1C 5.8 % (4.5-5.6)
--- NOTE | 2024-11-04 09:29 | Orthopedic Progress Note ---
Date of Service November 04, 2024 Assessment & Plan (1) S/P total knee arthroplasty: Plan: Morbid obesity, BMI 41.8 kg/m*m Slight improvement. Reviewed exercises. Focus on elevation. Continue IV antibiotics. Still suspect likely inflammation. Thought about adding steroids versus Celebrex. Given potential wound healing issues as well as effects on blood sugar will try Celebrex 100 mg p.o. twice daily. Initiate PT and OT.Continue Eliquis Admission and Anticipated Discharge Date Admission Date: November 03, 2024 Subjective Ultrasound negative for DVT. Patient feels about the same. Maybe slightly better. He is elevated on several pillows. His pain is well-controlled. He has had a bowel movement. His labs are noted. He does have elevated inflammatory markers. Glycemic control consult has been initiated. He is receiving his antibiotics. Ultrasound negative for DVT. White blood cell count normal. He is afebrile. Physical Exam Physical Exam: The erythema is about the same. It has not expanded and may have receded slightly. drum tender along the anteromedial tibia. The knee itself is benign he can bend the knee 45 degrees does not have any redness further up on the incision and does not have an intra-articular effusion of any significance. There is no wound drainage. The lateral blisters are painted with Betadine and ruptured. He is able to do a straight leg raise today. There is trace pretibial edema. Results & Data Vital Signs (Past 12 Hours) Vital Signs Temp Pulse Resp BP Pulse Ox O2 Del Method 11/04/24 07:55 Room Air 11/04/24 07:23 36.8 C 66 18 150/76 H 94 Room Air Laboratory Results Laboratory Results WBC 9.33 K/ul (4.8-10.8) 11/03/24 14:56 RBC 3.67 M/uL (4.70-6.10) L 11/03/24 14:56 Hgb 11.8 g/dl (14.0-18.0) L 11/03/24 14:56 Hct 35.3 % (42.0-52.0) L 11/03/24 14:56 MCV 96.2 fL (80.0-100.0) 11/03/24 14:56 MCH 32.2 pg (25.0-34.0) 11/03/24 14:56 MCHC 33.4 g/dL (32.0-36.0) 11/03/24 14:56 RDW Std Deviation 47.2 fL (36.4-46.3) H 11/03/24 14:56 RDW Coeff of Komal 13.2 % (11.5-14.5) 11/03/24 14:56 Plt Count 365 K/uL (130-400) 11/03/24 14:56 MPV 9.0 fL (9.4-12.4) L 11/03/24 14:56 Immature Gran % (Auto) 1.8 % 11/03/24 14:56 Neut % (Auto) 70.2 % 11/03/24 14:56 Lymph % (Auto) 14.0 % 11/03/24 14:56 [place] % (Auto) 10.5 % 11/03/24 14:56 Eos % (Auto) 3.1 % 11/03/24 14:56 Baso % (Auto) 0.4 % 11/03/24 14:56 Neut # (Auto) 6.54 K/uL (1.40-6.50) H 11/03/24 14:56 Lymph # (Auto) 1.31 K/uL (1.20-3.40) 11/03/24 14:56 [place] # (Auto) 0.98 K/uL (0.11-0.59) H 11/03/24 14:56 Eos # (Auto) 0.29 K/uL (0.00-0.50) 11/03/24 14:56 Baso # (Auto) 0.04 K/uL (0.00-0.20) 11/03/24 14:56 Immature Gran # (Auto) 0.17 K/uL (0.01-0.20) 11/03/24 14:56 ESR 62 mm/hr (0-20) H 11/03/24 14:56 Sodium 138 mmol/L (136-145) 11/03/24 15:00 Potassium 4.1 mmol/L (3.5-5.1) 11/03/24 15:00 Chloride 99 mmol/L (98-107) 11/03/24 15:00 Carbon Dioxide 29 mmol/L (21-32) 11/03/24 15:00 Anion Gap 10 (3-11) 11/03/24 15:00 BUN 16 mg/dl (6-23) 11/03/24 15:00 Creatinine 0.93 mg/dl (0.6-1.4) 11/04/24 05:34 Est Cr Clr Drug Dosing 115.5 ml/min 11/04/24 05:34 eGFR 94.00 11/04/24 05:34 BUN/Creatinine Ratio 21.1 (10-20) H 11/03/24 15:00 Glucose 114 mg/dl (70-99(Fasting)) H 11/03/24 15:00 POC Glucose 124 mg/dl (70-99) H 11/04/24 07:37 Estimat Average Glucose 120 mg/dl 11/04/24 05:34 Hemoglobin A1c 5.8 % (4.5-5.6) H 11/04/24 05:34 Calcium 9.8 mg/dl (8.6-10.3) 11/03/24 15:00 C-Reactive Protein 4.89 mg/dl (0-0.5) H 11/03/24 15:00 Impressions Venous Doppler Study 11/03/24 14:17 Exam(s): US VENOUS RIGHT LOWER EXTREMITY EXAM: US Duplex Right Lower Extremity Veins CLINICAL HISTORY: Reason for exam: Right leg swelling/ erythema, s/p right TKA. TECHNIQUE: Real-time duplex ultrasound scan of the right lower extremity veins integrating B-mode two-dimensional vascular structure, Doppler spectral analysis, color flow Doppler imaging and compression. COMPARISON: No relevant prior studies available. FINDINGS: The exam is limited. Deep veins: No DVT in the visualized common femoral, femoral, proximal deep femoral or popliteal veins. The veins demonstrate normal color flow, are normally compressible, with normal phasic flow and/or augmentation response. Superficial veins: No thrombus in the visualized great saphenous vein. Soft tissues: No acute findings. No popliteal cyst. IMPRESSION: No ultrasound evidence of deep venous thrombosis in the right lower extremity.. Electronically signed by: Garrick Putnam MD 11/03/24 23:53 PM
--- NOTE | 2024-11-04 13:06 | Pharmacy Report ---
Pharmacy Glycemic Short Note 2 - Date of Service November 04, 2024 - Glycemic Short BSG Results (Last 24 hours): 11/03/24 11/03/24 11/03/24 15:00 17:47 20:30 Glucose 114 H POC Glucose 150 H 116 H 11/04/24 11/04/24 07:37 11:15 Glucose POC Glucose 124 H 105 H OUTPATIENT ANTIDIABETIC REGIMEN: * None HbA1c: 5.8% (11/04/24) ASSESSMENT: 11/04/24: * Blood sugars well-controlled so far w/ bolus insulin only * No clear stressors besides possible infection * Will loosen bolus insulin parameters and hold basal for now in light of HbA1c on no meds 11/03/24: * 58 yo M with diet-controlled T2DM on no diabetes medications admitted with possible infected joint from TKA on 10/27. * BSG x1 here in goal range. * No basal until/unless BSG above 140 mg/dL * Initiate Novolog at slightly looser than weight-based moderate stress estimate PLAN FOR INPATIENT GLYCEMIC CONTROL: * Basal insulin * hold * Bolus insulin * NovoLog per scale ACHS or Q6hrs while NPO * Goal Range: Low 110 mg/dL - High 140 mg/dL * Correction Factor: 35 mg/dL/unit * Nutritional / Prandial insulin per carb ratio of 1 unit per 20 grams CHO consumed
[2024-11-04 16:24] VITALS: O2SAT 94
--- NOTE | 2024-11-05 09:41 | Orthopedic Progress Note ---
Date of Service November 05, 2024 Assessment & Plan (1) Knee joint replacement status: Plan: The patient was educated regarding today's findings. He would like to go home. He has remained afebrile. His lower leg remains erythemic, though he states it is less painful and less hot than yesterday. I think he should stay for additional antibiotic doses until the erythema recedes further. This will be discussed with Dr. Cruz. Continue with elevation of the leg. Continue with ice and compression. Continue with Eliquis for anticoagulation. Admission and Anticipated Discharge Date Admission Date: November 03, 2024 Subjective This 58-year-old male is seen today in his room. 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 He states it is better than yesterday. He denies any fevers or chills. No sweats. He would like to go home. No new complaints. Previous ultrasound was negative for DVT. His pain is well- controlled. He has had a bowel movement. He is receiving his antibiotics. This is his fourth day admitted. Physical Exam Physical Exam: General: Well-developed, well-nourished, middle-aged male, in no acute distress. Sitting on his bed. Alert and oriented. Conversive. Large individual. Skin: Warm and dry with good turgor. Giovani wrap is present on the right knee. Upon removal, janet are in place. Wound edges are well-approximated. No appreciable erythema around the incision itself. He has significant erythema present distally. It has receded a very minor amount away from the line of demarcation. Edema continues to be present in the lower extremity. No weeping. Skin is hot to touch in the erythemic area. He states it is better today than yesterday. Musculoskeletal: The patient has intact motor function of the right knee and ankle. Strength is 5/5 for resisted knee extension and flexion as well as ankle dorsiflexion and plantarflexion. Neurologic: Gross sensation is intact across the right leg by soft touch. Results & Data Vital Signs (Past 12 Hours) Vital Signs Temp Pulse Resp BP Pulse Ox O2 Del Method 11/05/24 07:53 Room Air 11/05/24 07:45 36.9 C 69 20 158/75 H 94 Room Air Laboratory Results Vancomycin level obtained this morning is low at 8.5. (1) Knee joint replacement status Laterality: right Qualified Code(s): Z96.651 - Presence of right artificial knee joint
[2024-11-06 06:26] LABS: Creatinine Clr Calc Pharmacy 135.9 ml/min
[2024-11-06 08:07] VITALS: RESP 18; TEMP 98.2
--- NOTE | 2024-11-06 10:00 | Orthopedic Progress Note ---
Date of Service November 06, 2024 Assessment & Plan (1) Knee joint replacement status: Plan: Spoke with Pharmacy. Recommendation is for D/C with Oral Keflex. He state that ID is planning on rounding with pharmacy staff around 11 and will confirm this. After rounding this AM, ID recommended Cephalexin 1000 mg PO TID due to patient's BMI. Continue with elevation of the leg. ice and compression. Eliquis for anticoagulation. Pain control with p.o. medication Keep surgical incision site covered Weightbearing as tolerated with walker assistance (2) Cellulitis of right lower leg: Admission and Anticipated Discharge Date Admission Date: November 03, 2024 Subjective This 58-year-old male is seen today in his room. He states he is feeling better but his leg is core oven tender to touch. He states it is better than yesterday. He denies any fevers or chills. No sweats. He would like to go home and go to his granddaughter's softball game later today. Previous ultrasound was negative for DVT. His pain is well-controlled. Patient denies chest pain, shortness of breath, fever, chills, sweats, nausea, vomiting, diarrhea or numbness or tingling in his right lower extremity. He states that when he initially gets up he has some discomfort in his leg but once he gets moving the discomfort resolves. Review of Systems Review of Systems: All systems reviewed & are unremarkable except as noted in Subjective Physical Exam Physical Exam: Right knee: Surgical incision site is closed completely with janet in place there is no palpable fluctuance or drainage. There is no erythema but mild edema. Just distal to the distal end of the incision patient has edema, erythema warmth. Edema is 1+ pitting. Patient has tenderness to palpation over the anterior aspect of the leg from this area to the an area just proximal to the ankle joint. The skin marker markings are visible and the erythema has receded slightly. There are no open skin areas or drainage. Patient is able to perform active straight leg raise test. He is able to actively dorsi and plantarflex foot. He is able to detect light sensation to touch over the pads of all digits. Active knee range of motion is from 0 degrees of extension to 60 degrees of flexion. Results & Data Vital Signs (Past 12 Hours) Vital Signs Temp Pulse Resp BP Pulse Ox O2 Del Method 11/06/24 08:06 36.8 C 60 18 163/76 H 94 Room Air Laboratory Results Laboratory Results WBC 9.33 K/ul (4.8-10.8) 11/03/24 14:56 RBC 3.67 M/uL (4.70-6.10) L 11/03/24 14:56 Hgb 11.8 g/dl (14.0-18.0) L 11/03/24 14:56 Hct 35.3 % (42.0-52.0) L 11/03/24 14:56 MCV 96.2 fL (80.0-100.0) 11/03/24 14:56 MCH 32.2 pg (25.0-34.0) 11/03/24 14:56 MCHC 33.4 g/dL (32.0-36.0) 11/03/24 14:56 RDW Std Deviation 47.2 fL (36.4-46.3) H 11/03/24 14:56 RDW Coeff of Komal 13.2 % (11.5-14.5) 11/03/24 14:56 Plt Count 365 K/uL (130-400) 11/03/24 14:56 MPV 9.0 fL (9.4-12.4) L 11/03/24 14:56 Immature Gran % (Auto) 1.8 % 11/03/24 14:56 Neut % (Auto) 70.2 % 11/03/24 14:56 Lymph % (Auto) 14.0 % 11/03/24 14:56 [place] % (Auto) 10.5 % 11/03/24 14:56 Eos % (Auto) 3.1 % 11/03/24 14:56 Baso % (Auto) 0.4 % 11/03/24 14:56 Neut # (Auto) 6.54 K/uL (1.40-6.50) H 11/03/24 14:56 Lymph # (Auto) 1.31 K/uL (1.20-3.40) 11/03/24 14:56 [place] # (Auto) 0.98 K/uL (0.11-0.59) H 11/03/24 14:56 Eos # (Auto) 0.29 K/uL (0.00-0.50) 11/03/24 14:56 Baso # (Auto) 0.04 K/uL (0.00-0.20) 11/03/24 14:56 Immature Gran # (Auto) 0.17 K/uL (0.01-0.20) 11/03/24 14:56 ESR 62 mm/hr (0-20) H 11/03/24 14:56 Sodium 138 mmol/L (136-145) 11/03/24 15:00 Potassium 4.1 mmol/L (3.5-5.1) 11/03/24 15:00 Chloride 99 mmol/L (98-107) 11/03/24 15:00 Carbon Dioxide 29 mmol/L (21-32) 11/03/24 15:00 Anion Gap 10 (3-11) 11/03/24 15:00 BUN 16 mg/dl (6-23) 11/03/24 15:00 Creatinine 0.79 mg/dl (0.6-1.4) 11/06/24 05:40 Est Cr Clr Drug Dosing 135.9 ml/min 11/06/24 05:40 eGFR 101.70 11/06/24 05:40 BUN/Creatinine Ratio 21.1 (10-20) H 11/03/24 15:00 Glucose 114 mg/dl (70-99(Fasting)) H 11/03/24 15:00 POC Glucose 126 mg/dl (70-99) H 11/06/24 07:30 Estimat Average Glucose 120 mg/dl 11/04/24 05:34 Hemoglobin A1c 5.8 % (4.5-5.6) H 11/04/24 05:34 Calcium 9.8 mg/dl (8.6-10.3) 11/03/24 15:00 C-Reactive Protein 4.89 mg/dl (0-0.5) H 11/03/24 15:00 Random Vancomycin 8.5 mcg/ml (10-20) L 11/05/24 03:48 Impressions Venous Doppler Study 11/03/24 14:17 Exam(s): US VENOUS RIGHT LOWER EXTREMITY EXAM: US Duplex Right Lower Extremity Veins CLINICAL HISTORY: Reason for exam: Right leg swelling/ erythema, s/p right TKA. TECHNIQUE: Real-time duplex ultrasound scan of the right lower extremity veins integrating B-mode two-dimensional vascular structure, Doppler spectral analysis, color flow Doppler imaging and compression. COMPARISON: No relevant prior studies available. FINDINGS: The exam is limited. Deep veins: No DVT in the visualized common femoral, femoral, proximal deep femoral or popliteal veins. The veins demonstrate normal color flow, are normally compressible, with normal phasic flow and/or augmentation response. Superficial veins: No thrombus in the visualized great saphenous vein. Soft tissues: No acute findings. No popliteal cyst. IMPRESSION: No ultrasound evidence of deep venous thrombosis in the right lower extremity.. Electronically signed by: Garrick Putnam MD 11/03/24 23:53 PM (1) Knee joint replacement status Laterality: right Qualified Code(s): Z96.651 - Presence of right artificial knee joint
--- NOTE | 2024-11-06 11:33 | Pharmacy Report ---
Pharmacy PK ABX Note - Date of Service November 06, 2024 - Assessment and Plan Assessment 11/06/24: * Treating cellulitis distal to surgical site (non-purulent) * Renal function stable, remains on vancomycin/cefepime. Plan is likely to discharge later today on cephalexin. 11/03/24: * 58 year old M receiving cefepime and vancomycin for treatment of possible post-op surgical site infection after TKA 10/27. Per Tonya Gallagher - low concern for septic joint. * SCr stable and at/near baseline Plan Vancomycin * Current regimen: 1500 mg IV every 12 hours * Random level obtained 11/05/24 resulted as 8.5 mcg/mL. This was projected to result in subtherapeutic level. * Change to 1750 mg IV every 12 hours * Predicted AUC at steady state: 490 mg/L.hr * Repeat random level ordered for: 11/08/24 Pharmacy will continue to follow and will adjust dose/frequency as necessary. Thank you. Pharmacy has transitioned to AUC monitoring for vancomycin. AUC/CONRADO is the preferred PK/PD target and is associated with decreased risk of nephrotoxicity compared to traditional trough targets.
--- NOTE | 2024-11-06 14:34 | Discharge Summary ---
Date of Service November 06, 2024 Admission HPI Per Admitting Provider Matt Boucher is a 58 year old Male who presents today for wound check of his right leg s/p knee replacement. He complains of the most discomfort in the right yip and has redness in the lower leg area which has been present since returning home from the hospital on 10/28/2024. He feel the redness has progressed. Patient reports he does not have any pain in the knee itself. He also has swelling and blistering on the posterolateral aspect of his knee. He has been elevating but not above the heart. Home nursing was concerned for MRSA or other infection. He denies any symptoms of fever, chills, or drainage for the incision. He denies any history of gout. He underwent a right total knee arthroplasty with Dr. Cruz on October 27, 2024. He has been ambulating with his walker. Has not had any known injury to the knee. Has been taking oxycodone, Tylenol and tramadol for pain. Pain has been fairly well-controlled. He was seen and evaluated today by Dr. Cruz in the outpatient clinic. It was advised that he be admitted to the hospital for IV antibiotics, blood work, ultrasound of the right lower extremity and observation. He is agreeable to this plan. Hospital Course (1) Knee joint replacement status: Matt was admitted to [facility] after Clinical evaluation with some increased leg pain, swelling and redness. He was status post a right total knee arthroplasty with Dr. Cruz on October 27, 2024. He was admitted with probable cellulitis of the right lower extremity. He did not have a joint infection. He was admitted to [facility] for IV antibiotic biotics, vancomycin and cefepime. At duplex ultrasound was performed of his right lower extremity rule out DVT which was negative. He was given a regular diet. He was allowed out of bed, weight-bear as tolerated with his walker. He did no longer needed the knee immobilizer. Pain medication was provided and he was given oxycodone and tramadol. His Eliquis 2.5 mg p.o. twice daily was continued for DVT prophylaxis. He was encouraged to elevate his right leg frequently higher than his heart while in the hospital. On postoperative day 1 he was evaluated and the blisters on the outer aspect of his knee were cleansed with Betadine, lacerated with a sterile 18-gauge needle and evacuated. They were then wiped with Betadine again and a dressing was applied. His incision during his inpatient stay remained clean, dry and intact. His pain was well- controlled with oral tramadol and an occasional oxycodone. Home medications were continued. A physical therapy order was placed. He was allowed out of bed, weightbearing as tolerated and range of motion as tolerated on the right leg. Celebrex 100 mg p.o. twice daily was started on November 04, 2024 to help with inflammation. He had a bowel regimen and had no issues with constipation while in house. He did well out of bed. He was left here for a few days of IV antibiotics. On Saturday, November 06, 2024 his redness, swelling and pain had improved. Pharmacy recommended him going home for treatment of the cellulitis on Keflex 1000 mg 3 times daily due to patient's BMI. It was determined that he was doing well enough for discharge to his home on November 06, 2024. He was discharged to his home in stable condition. Medications will be Eliquis for DVT prophylaxis, Celebrex 100 mg p.o. twice daily for inflammation, Keflex 1000 mg 3 times daily x 7 days for treatment of infection, tramadol and oxycodone as needed pain for right knee. He will follow-up as scheduled with Dr. Cruz as an outpatient. He knows to call with any problems, questions or concerns. He was instructed to elevate and ice at home and use his walker. Continue compression with Tubigrip on his right leg. He can continue in-home physical therapy and home health until his outpatient appointment on the and then start outpatient physical therapy as scheduled. All questions were answered. Discharge instructions were reviewed. Patient understands and agrees with the plan. (2) Cellulitis of right lower leg:
[2024-11-06 15:06] VITALS: BP 150/73; PULSE 65
== END 2024-11-06 15:41 | disposition home health service (06) ==
LOC: 3E 14:35